=== PATIENT | female | born 1945 | race Caucasian/White ===

== ENCOUNTER 2020-05-21 15:16 | Outpatient (CLI) | payer OTHER, SELFPAY ==
--- NOTE | ~2020-05-21 | MM_ITS ---
EXAMINATION: MM screening cammy BI w harpreet HISTORY: Screening mammogram TECHNIQUE: Craniocaudal and mediolateral oblique 3-D tomosynthesis images were obtained and synthetic 2-D images were generated. CAD analysis was submitted and interpreted. COMPARISON: 12/03/2018, 10/02/2017, 03/14/2016 bilateral digital screening mammogram examinations BREAST PARENCHYMAL COMPOSITION: There are scattered areas of fibroglandular density.... FINDINGS: Occasional benign calcifications. There is no evidence of suspicious mass, calcification, o r architectural distortion to suggest malignancy in either breast. There has been no suspicious inter bassam change. IMPRESSION: 1. No mammographic evidence of malignancy. 2. Recommend routine screening mammography in one year. BI-RADS Category 2: Benign finding(s) Reviewed, dictated and finalized at location A.
== END 2020-05-21 15:17 | disposition home or self-care (01) ==
PROVIDERS: PCP Internal Medicine; Visit Provider Internal Medicine
DX: Z12.31 Encounter for screening mammogram for malignant neoplasm of breast (principal)
CPT/HCPCS: 77063; 77067

== ENCOUNTER → 2020-11-08 08:19 | Outpatient (CLI) | payer OTHER, SELFPAY ==
--- NOTE | ~2020-11-08 | XR_ITS ---
EXAMINATION: XR lumbar spine 2-3V DATE: 11/08/2020 08:53 INDICATION: Low back pain TECHNIQUE: Anteroposterior and lateral views of the lumbar spine, and cone-down lateral view of the l umbosacral junction were obtained. COMPARISON: None. FINDINGS: There is no fracture. There are 2 mm of anterolisthesis of L3 on L4 and L4 on L5. The verte bral body heights are there is mild loss of intervertebral disc space height at L4-5 and L5-S1. Small degenerative osteophytes project from the anterior endplates of multiple vertebral bodies. IMPRESSION: 1. Mild lumbar spondylosis without acute findings. Reviewed, dictated and finalized at location B.
== END ==
PROVIDERS: Visit Provider Nurse Practitioner
DX: M54.9 Dorsalgia, unspecified (principal); M47.816 Spondylosis without myelopathy or radiculopathy, lumbar region
CPT/HCPCS: 72100

== ENCOUNTER 2021-01-18 09:14 | Outpatient (CLI) | payer OTHER, SELFPAY ==
--- NOTE | 2021-01-18 09:37 | EST_ITS ---
Patient Info Name: Mallory Toure Age: 75 years : 1945 Gender: Female Ht: 59 in Wt: 144 lbs BSA: 1.67 m2 Exam Date: 01/18/2021 9:55 AM Exam Location: [facility] Stress Patient Status: Outpatient Admit Date: 01/18/2021 Staff Ordering Physician: Sheila Summers Attending Provider: Sheila Summers Exercise Technologist: Iqra Cabral RDCS Exercise Physician: Feliciano Ramos DO Exam Type: CA stress test treadmill Study Info Indications R29.898 - OTHER SYMPTOMS AND SIGNS INVOLVING MUSCULOSKELETAL SYSTEM R42 - Dizziness and giddiness An exercise stress test was performed. Summary 1. 1. Negative Vignesh exercise stress test for ischemic ST changes by ECG criteria. 2. 2. Good functional capacity, achieving 7 METs of workload. 3. 3. Appropriate HR response to exercise. 4. 4. Appropriate HR recovery at 1 minute post exercise. 5. 5. Hypertensive response to exercise. 6. 6. No imaing with stress testing. 7. 7. Patient informed of the above results. Protocol: Vignesh Stress ECG Details Stage: REST Duration (min): 4 min : 46 sec Speed (mph): 0.0 Grade (%): 0 HR (bpm): 75 SBP (mmHg): 126 DBP (mmHg): 80 METS: --- Stage: REST Duration (min): 12 min : 21 sec Speed (mph): 0.0 Grade (%): 0 HR (bpm): 72 SBP (mmHg): 126 DBP (mmHg): 80 METS: --- Stage: STAGE 1 Duration (min): 1 min : 0 sec Speed (mph): 1.7 Grade (%): 10 HR (bpm): 107 SBP (mmHg): 126 DBP (mmHg): 80 METS: --- Stage: STAGE 1 Duration (min): 2 min : 0 sec Speed (mph): 1.7 Grade (%): 10 HR (bpm): 126 SBP (mmHg): 126 DBP (mmHg): 80 METS: --- Stage: STAGE 1 Duration (min): 3 min : 0 sec Speed (mph): 1.7 Grade (%): 10 HR (bpm): 132 SBP (mmHg): 183 DBP (mmHg): 52 METS: --- Stage: STAGE 2 Duration (min): 1 min : 0 sec Speed (mph): 2.5 Grade (%): 12 HR (bpm): 136 SBP (mmHg): 183 DBP (mmHg): 52 METS: --- Stage: STAGE 2 Duration (min): 2 min : 0 sec Speed (mph): 2.5 Grade (%): 12 HR (bpm): 140 SBP (mmHg): 198 DBP (mmHg): 62 METS: --- Stage: STAGE 2 Duration (min): 2 min : 0 sec Speed (mph): 2.5 Grade (%): 12 HR (bpm): 139 SBP (mmHg): 198 DBP (mmHg): 62 METS: --- Stage: RECOVERY Duration (min): 0 min : 59 sec Speed (mph): 0.0 Grade (%): 0 HR (bpm): 108 SBP (mmHg): 214 DBP (mmHg): 70 METS: --- Stage: RECOVERY Duration (min): 1 min : 59 sec Speed (mph): 0.0 Grade (%): 0 HR (bpm): 93 SBP (mmHg): 214 DBP (mmHg): 70 METS: --- Stage: RECOVERY Duration (min): 2 min : 59 sec Speed (mph): 0.0 Grade (%): 0 HR (bpm): 87 SBP (mmHg): 191 DBP (mmHg): 74 METS: --- Stage: RECOVERY Duration (min): 3 min : 59 sec Speed (mph): 0.0 Grade (%): 0 HR (bpm): 83 SBP (mmHg): 191 DBP (mmHg): 74 METS: ---
== END 2021-01-18 09:15 | disposition home or self-care (01) ==
PROVIDERS: PCP Internal Medicine; Visit Provider Nurse Practitioner
DX: R29.898 Other symptoms and signs involving the musculoskeletal system (principal); R42 Dizziness and giddiness
CPT/HCPCS: 93017

== ENCOUNTER 2021-01-21 09:06 | Outpatient (CLI) | payer OTHER, SELFPAY ==
--- NOTE | ~2021-01-21 | CT_ITS ---
EXAMINATION: CT brain wo con DATE: 01/21/2021 09:41 INDICATION: Dizziness. Giddiness. TECHNIQUE: Computed tomography (CT) of the head was performed without intravenous contrast. The dose- length product was 605.33 mGy-cm. Automated exposure control and iterative reconstruction technique w ere employed. COMPARISON: No prior studies for comparison. FINDINGS: Normal brain parenchymal volume. No acute intracranial hemorrhage, infarction, mass or mass effect. Basilar cisterns are patent. No ventriculomegaly or midline shift. There is mild mucosal thi ckening of the maxillary and ethmoid sinuses. There is a left mastoid effusion. IMPRESSION: 1. Mild sinus disease. Small left mastoid effusion. Reviewed, dictated and finalized at location B.
== END 2021-01-21 09:07 | disposition home or self-care (01) ==
PROVIDERS: PCP Internal Medicine; Visit Provider Nurse Practitioner
DX: R42 Dizziness and giddiness (principal); H74.8X2 Other specified disorders of left middle ear and mastoid
CPT/HCPCS: 70450

== ENCOUNTER 2021-06-10 14:27 | Outpatient (CLI) | payer OTHER, SELFPAY ==
--- NOTE | ~2021-06-10 | MM_ITS ---
EXAMINATION: MM screening cammy BI w harpreet HISTORY: Screening mammogram TECHNIQUE: Craniocaudal and mediolateral oblique 3-D tomosynthesis images were obtained and synthetic 2-D images were generated. CAD analysis was submitted and interpreted. COMPARISON: 05/21/2020, 12/03/2018, 10/02/2017 bilateral screening mammogram examinations BREAST PARENCHYMAL COMPOSITION: There are scattered areas of fibroglandular density. FINDINGS: Occasional benign calcifications are again noted. There is no evidence of suspicious mass, calcification, or architectural distortion to suggest malignancy in either breast. There has been no suspicious interval change. IMPRESSION: 1. No mammographic evidence of malignancy. 2. Recommend routine screening mammography in one year. BI-RADS Category 2: Benign finding(s). Reviewed, dictated and finalized at location A. 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
== END 2021-06-10 14:28 | disposition home or self-care (01) ==
LOC: ANHIMG 14:29
PROVIDERS: PCP Internal Medicine; Visit Provider Nurse Practitioner
DX: Z12.31 Encounter for screening mammogram for malignant neoplasm of breast (principal)
CPT/HCPCS: 77063; 77067

== ENCOUNTER 2021-08-02 09:03 | Outpatient (CLI) | payer OTHER, SELFPAY ==
--- NOTE | ~2021-08-02 | DEXA_ITS ---
Bone Density Report Name: ZOILA GRAY Age: 75 Sex: Female Ethnicity: White Date of : 1945 Indication: postmenopausal; height loss; prior fracture; Referring Provider: EDWIN RAMACHANDRAN Study: Bone densitometry was performed. Exam Date: August 02, 2021 Accession number: [id number] Bone Density: Region BMD T-score Z-score Classification AP Spine (L1-L4) 1.066 0.2 2.6 Normal Femoral Neck (Left) 0.690 -1.4 0.7 Osteopenia Total Hip (Left) 0.923 -0.2 1.7 Normal Total Hip Bilateral Avg 0.918 -0.2 1.7 Normal Femoral Neck (Right) 0.667 -1.6 0.5 Osteopenia Total Hip (Right) 0.913 -0.2 1.6 Normal World Health Organization criteria for BMD impression classify patients as: Normal (T-score at or above -1.0), Osteopenia (T-score between -1.0 and -2.5), or Osteoporosis (T-score at or below -2.5). 10-year Fracture Risk(1): Major Osteoporotic Fracture 18% Hip Fracture 3.5% Reported Risk Factors: [place] (), Neck BMD=0.667, BMI=29.0, previous fracture (1) FRAX(R) Version 3.08. Fracture probability calculated for an untreated patient. Fracture probability may be lower if the patient has received treatment. Previous Exams: Region Exam Age BMD T-score BMD Change BMD Change Date g/cm2 vs Baseline vs Previous AP Spine(L1-L4) 08/02/2021 75 1.066 0.2 -0.038(-3.5%)# 0.059(5.8%)* 12/03/2018 73 1.007 -0.4 -0.097(-8.8%)# -0.018(-1.8%) 01/11/2015 69 1.025 -0.2 -0.079(-7.1%)# -0.008(-0.8%)# 11/19/2012 67 1.033 -0.1 -0.071(-6.4%)# -0.018(-1.7%)# 10/18/2010 65 1.051 0.0 -0.053(-4.8%)* 0.021(2.1%) 10/02/2008 62 1.030 -0.2 -0.074(-6.7%)* -0.074(-6.7%)* 04/29/2003 57 1.104 0.5 Total Hip(Left) 08/02/2021 75 0.923 -0.2 -0.034(-3.6%)# 0.004(0.5%) 12/03/2018 73 0.918 -0.2 -0.039(-4.1%)# 0.026(2.9%) 01/11/2015 69 0.892 -0.4 -0.065(-6.8%)# 0.064(7.7%)# 11/19/2012 67 0.828 -0.9 -0.129(-13.5%) -0.081(-8.9%)# 10/18/2010 65 0.909 -0.3 -0.048(-5.0%)* 0.007(0.8%) 10/02/2008 62 0.901 -0.3 -0.056(-5.8%)* -0.056(-5.8%)* 04/29/2003 57 0.957 0.1 Total Hip(Right) 08/02/2021 75 0.913 -0.2 -0.005(-0.6%)# 0.049(5.7%)* 12/03/2018 73 0.864 -0.6 -0.054(-5.9%)# 0.026(3.1%) 01/11/2015 69 0.838 -0.9 -0.080(-8.7%)# 0.035(4.4%)# 11/19/2012 67 0.803 -1.1 -0.115(-12.6%) -0.063(-7.3%)# 10/18/2010 65 0.866 -0.6 -0.052(-5.7%)* -0.026(-2.9%) 10/02/2008 62 0.892 -0.4 -0.026(-2.9%) -0.026(-2.9%) 04/29/2003 57 0.918 -0.2 *Denotes significance at
== END 2021-08-02 09:04 | disposition home or self-care (01) ==
LOC: ANHIMG 09:04
PROVIDERS: PCP Internal Medicine; Visit Provider Nurse Practitioner
DX: Z78.0 Asymptomatic menopausal state (principal); M85.851 Other specified disorders of bone density and structure, right thigh; M85.852 Other specified disorders of bone density and structure, left thigh
CPT/HCPCS: 77080

== ENCOUNTER 2022-08-03 09:25 | Outpatient (CLI) | payer OTHER, SELFPAY ==
--- NOTE | ~2022-08-03 | MM_ITS ---
EXAMINATION: MM screening [facility] BI w harpreet HISTORY: Screening mammogram TECHNIQUE: Craniocaudal and mediolateral oblique 3-D tomosynthesis images were obtained and synthetic 2-D images were generated. CAD analysis was submitted and interpreted. COMPARISON: 06/10/2021, 05/21/2020, 12/03/2018, 03/13/2016 BREAST PARENCHYMAL COMPOSITION: There are scattered areas of fibroglandular density. FINDINGS: No suspicious mass, calcification, or architectural distortion are identified in either2 br east to suggest malignancy. There has been no suspicious interval change. IMPRESSION: 1. No mammographic evidence of malignancy. 2. Recommend routine screening mammography in one year. 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
== END 2022-08-03 09:26 | disposition home or self-care (01) ==
PROVIDERS: PCP Internal Medicine; Visit Provider Internal Medicine
DX: Z12.31 Encounter for screening mammogram for malignant neoplasm of breast (principal)
CPT/HCPCS: 77063; 77067

== ENCOUNTER 2023-01-23 08:23 | Outpatient (CLI) | payer OTHER, SELFPAY ==
--- NOTE | ~2023-01-23 | XR_ITS ---
Right Knee Technique: AP and lateral views were obtained. Clinical History: Pain Findings: No fracture or dislocation is seen. Osseous alignment is anatomic. Joint spaces are preserv ed without degenerative or erosive change. Soft tissues are unremarkable. No joint effusion is seen. Impression: Unremarkable right knee radiographs. Reviewed, dictated and finalized at location . Impression: Unremarkable right knee radiographs.
--- NOTE | ~2023-01-23 | XR_ITS ---
Right Shoulder Technique: AP and scapular Y views were obtained. Clinical History: Pain Findings: No fracture or dislocation is seen. Osseous alignment is anatomic. There is minimal degener ative change of the glenohumeral joint. Soft tissues are unremarkable. Impression: . Minimal degenerative change of the right glenohumeral joint. Reviewed, dictated and finalized at location . Impression: . Minimal degenerative change of the right glenohumeral joint.
== END 2023-01-23 08:24 | disposition home or self-care (01) ==
PROVIDERS: PCP Nurse Practitioner Family; Visit Provider Nurse Practitioner Family
DX: M25.561 Pain in right knee (principal); M25.511 Pain in right shoulder; W19.XXXA Unspecified fall, initial encounter
CPT/HCPCS: 73030; 73560

== ENCOUNTER 2023-03-01 07:45 | Outpatient (CLI) | payer OTHER, SELFPAY ==
--- NOTE | ~2023-03-01 | MR_ITS ---
EXAMINATION: MR shoulder RT wo con DATE: 03/01/2023 08:32 INDICATION: Right shoulder pain TECHNIQUE: Magnetic resonance imaging (MRI) of the right shoulder was performed without intravenous c ontrast. Sequences included axial PD-weighted FS FSE, coronal oblique PD-weighted FS FSE, coronal obl ique T2-weighted FS FSE, sagittal PD-weighted FS FSE, and sagittal T1-weighted SE. COMPARISON: None. FINDINGS: Coracoacromial arch: The acromion undersurface is curved in morphology (type II). The coracoacromial ligament is normal. M oderate acromioclavicular osteoarthritis. Rotator cuff: Moderate supraspinatus tendinopathy with small moderate severity articular sided tear extending 7 mm AP along the superior facet footplate of the tendon and involving up to two thirds of the tendon thic kness. There is severe infraspinatus tendinopathy with some thin linear fluid signal intensity extend ing along the disorganized appearing central tendon fibers in the distal 2 cm of the tendon suggestin g some intrasubstance tearing but without a well-defined measurable tear defect. No evident reversibl e or articular sided component to the tear. The teres minor tendon is normal. Mild subscapularis tend inopathy without tear. Normal rotator cuff muscle bulk and signal. Biceps tendon, glenoid labrum and glenohumeral cartilage: Mild tendinopathy without discrete tear of the intra-articular long head biceps tendon. There is a te ar of the 11:00-12:00 position of the superior glenoid labrum. Degenerative tearing of the inferior g lenoid labrum which is partially replaced by small marginal osteophytes along the inferior rim of the glenoid. Partial-thickness cartilage loss along the apex, anteroapical and inferomedial aspects of t he humeral head. Glenoid cartilage appears relatively preserved. Fluid: Small glenohumeral joint effusion with proportional extension of a small amount of fluid into the lowell g head biceps tendon sheath. No loose osteochondral bodies. Small amount of fluid in the subacromial/ subdeltoid bursa consistent with mild bursitis. Bones: Bone alignment is normal. No fracture or pathologic marrow replacing process. Cystic changes along th e middle facet of the greater tuberosity likely related to chronic rotator cuff disease. IMPRESSION: 1. Moderate supraspinatus tendinopathy with small moderate severity partial-thickness articular sided tear at the distal insertion of the tendon. 2. Severe infraspinatus tendinopathy with suggestion of some intrasubstance tearing without a clearly defined measurable tear defect. 3. Mild glenohumeral osteoarthritis with tear at the superior glenoid labrum and likely labral degene ration inferiorly. 4. Moderate acromioclavicular osteoarthritis. 5. Mild tendinopathy without tear of the intra-articular long head biceps tendon. 6. Mild subacromial/subdeltoid bursitis. Reviewed, dictated and finalized at location A. IMPRESSION: 1. Moderate supraspinatus tendinopathy with small moderate severity partial-thi ckness articular sided tear at the distal insertion of the tendon. 2. Severe infraspinatus tendinopathy with suggestion of some intrasubstance tea ring without a clearly defined measurable tear defect. 3. Mild glenohumeral osteoarthritis with tear at the superior glenoid labrum an d likely labral degeneration inferiorly. 4. Moderate acromioclavicular osteoarthritis. 5. Mild tendinopathy without tear of the intra-articular long head biceps tendo n. 6. Mild subacromial/subdeltoid bursitis.
== END 2023-03-01 07:46 | disposition home or self-care (01) ==
PROVIDERS: PCP Nurse Practitioner Family; Visit Provider Nurse Practitioner Family
DX: M25.511 Pain in right shoulder (principal); M77.8 Other enthesopathies, not elsewhere classified; M19.011 Primary osteoarthritis, right shoulder; M75.21 Bicipital tendinitis, right shoulder; M75.51 Bursitis of right shoulder
CPT/HCPCS: 73221

== ENCOUNTER 2023-08-02 08:30 | Emergency (ER) | payer OTHER, SELFPAY ==
--- NOTE | ~2023-08-02 | XR_ITS ---
EXAMINATION: XR chest 2V DATE: 08/02/2023 09:02 INDICATION: Cough and congestion TECHNIQUE: PA and lateral views of the chest were obtained. COMPARISON: Chest radiograph dated 08/13/2018 FINDINGS: The lungs are clear with no focal airspace opacities, pulmonary edema, pleural effusion or pneumothor ax. The cardiomediastinal silhouette is normal. Chronic mild anterior wedging at T11 with mild to mod erate lower thoracic spondylosis. IMPRESSION: 1. No acute cardiopulmonary disease. Reviewed, dictated and finalized at location A. 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
--- NOTE | 2023-08-02 08:38 | ED.URI ---
HPI - URI/Sore Throat General Chief Complaint: Upper Respiratory Infection Stated Complaint: HOT & COLD/COUGH/BODY ACHES/TIRED Time Seen by Provider: 08/02/23 08:38 Source: patient Mode of arrival: ambulatory Limitations: no limitations History of Present Illness HPI Narrative: Mallory is a 77-year-old female patient presenting to the clinic today with complaints of body aches, chills, cough, and fatigue x3 days. She reports symptoms started on . MD elicited complaint: fever, cough, rhinorrhea and nasal congestion Related Data Home Medications Medication Instructions Recorded Confirmed doxycycline hyclate 50 mg capsule 50 mg PO DAILY 04/03/23 08/02/23 fluticasone propionate 50 intranasal 08/02/23 mcg/actuation nasal spray,suspension Allergies Allergy/AdvReac Type Severity Reaction Status Date / Time No Known Drug Allergies Allergy Unknown Verified 08/02/23 08:40 Review of Systems Review of Systems: Pertinent positives per HPI. Patient denies any rash, headache, visual changes, dizziness, sore throat, shortness of breath, chest pain, palpitations, nausea, vomiting, diarrhea, constipation, abdominal pain, or any urinary issues. [facility] Past Medical History Medical History Right rotator cuff tear Shoulder pain, right Strain of right biceps Thyroid disorder Surgical History Surgical History H/O breast biopsy H/O partial thyroidectomy Hx of appendectomy Family History Family History Sibling Patient's sister is in good health Father Family history of lung cancer Mother Family history of heart disease in male family member before age 55 Family history of cardiovascular disease Other Family history of malignant neoplasm of breast Social History Social History Years smoked: 2 Smoking status: Former smoker Tobacco type: cigarettes Second hand tobacco smoke exposure: Yes Alcohol intake: never Substance use: never Substance use type: does not use Lack of Transportation: No Lack of Food: Never True Current Housing: I Have Housing Concerned About Future Housing: No Difficulty Paying Gas/Electric Bills: No Difficulty Paying for Meds: No Currently Unemployed: No Education: Trade/Vocational Certificate Difficulty w/ Childcare or Family Care: No Living arrangements: with friend(s) Occupation/Education: retired Comments At the time of my signature, I reviewed and agree with the nursing past medical, surgical, social, and family history. There is no relevant family history pertinent to the patient complaint. Exam Narrative: General: Well-developed, well nourished, in no apparent distress Head: Normocephalic, atraumatic Eyes: Pupils equally round and reactive to light bilaterally, EOM intact, sclera and conjunctive clear, no discharge, lids normal Ears: TMs intact and clear, ear canals clear, no drainage, grossly hearing normal. Nose: Nares patent, clear nasal discharge, no inflammation, no sinus tenderness. Mouth: Oropharynx without lesions or masses, good dentition, MMM. Neck: Supple, trachea midline, no enlargement of anterior or posterior cervical nodes, no thyroid masses or goiter palpable. Cardio: Regular rate and rhythm, s1 and s2 normal, no murmur appreciated. Resp: Crackles heard over the left upper lobe, no rhonchi, wheezing or rubs Course Course Emergency Course: Portions of this record may have been created with voice recognition software. Level of Care: Express Care Visit Vital Signs Vital signs: Vital signs reviewed MDM - URI/Sore Throat MDM Narrative Medical decision making narrative: At the time of visit patient is resting comfortably on the exam table. Patient appears to be nontox
[2023-08-02 08:43] VITALS: BP 132/84; PULSE 95; RESP 16; TEMP 36.8; O2SAT 97
== END 2023-08-02 09:12 | disposition home or self-care (01) ==
PROVIDERS: Emergency Provider Nurse Practitioner Family; PCP Nurse Practitioner Family
DX: J10.1 Influenza due to other identified influenza virus with other respiratory manifestations (principal); Z20.822 Contact with and (suspected) exposure to COVID-19; Z87.891 Personal history of nicotine dependence; E03.9 Hypothyroidism, unspecified; Z90.89 Acquired absence of other organs
CPT/HCPCS: 71046; 87426; 87804; 99213; C9803; G0463

== ENCOUNTER 2023-09-26 14:58 | Outpatient (CLI) | payer OTHER, SELFPAY ==
--- NOTE | ~2023-09-26 | MM_ITS ---
EXAMINATION: MM screening cammy BI w harpreet HISTORY: Screening TECHNIQUE: Craniocaudal and mediolateral oblique 3-D tomosynthesis images were obtained and synthetic 2-D images were generated. CAD analysis was submitted and interpreted. COMPARISON: Comparison to multiple prior studies sequentially, with oldest reviewed study dated 03/13. BREAST PARENCHYMAL COMPOSITION: There are scattered areas of fibroglandular density. FINDINGS: There is no evidence of suspicious mass, calcification, or architectural distortion to sugg est malignancy in either breast. There has been no suspicious interval change. IMPRESSION: 1. No mammographic evidence of malignancy. 2. Recommend routine screening mammography in one year. BI-RADS Category 1: Negative Reviewed, dictated and finalized at location A. 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
== END 2023-09-26 14:59 | disposition home or self-care (01) ==
LOC: ANHIMG 15:02
PROVIDERS: PCP Nurse Practitioner Family; Visit Provider Nurse Practitioner Family
DX: Z12.31 Encounter for screening mammogram for malignant neoplasm of breast (principal)
CPT/HCPCS: 77063; 77067

== ENCOUNTER 2023-11-12 11:13 | Emergency (ER) | payer OTHER, SELFPAY ==
[2023-11-12 11:20] VITALS: BP 157/66; PULSE 85; RESP 18; TEMP 37; O2SAT 96
--- NOTE | 2023-11-12 11:32 | ED.URI ---
HPI - URI/Sore Throat General Chief Complaint: Upper Respiratory Infection Stated Complaint: Cold Symptoms Time Seen by Provider: 11/12/23 11:32 Source: patient, RN notes reviewed and old records reviewed Mode of arrival: ambulatory Limitations: no limitations History of Present Illness HPI Narrative: 70-year-old female presents to the [facility] with complaints nasal congestion, runny nose the started in middle of last night. Unsure she took any medications for her symptoms. Patient denies sore throat. 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 Onset (ago): hour(s) (Less than 12 hours) Related Data Home Medications Medication Instructions Recorded Confirmed doxycycline hyclate 50 mg capsule 50 mg PO DAILY 04/03/23 11/12/23 fluticasone propionate 50 2 spray intranasal BID 08/02/23 11/12/23 mcg/actuation nasal spray,suspension Allergies Allergy/AdvReac Type Severity Reaction Status Date / Time No Known Drug Allergies Allergy Unknown Verified 11/12/23 11:16 Review of Systems Review of Systems: All systems reviewed & are unremarkable except as noted in HPI and below Constitutional: Constitutional: Reports no additional constitutional complaints Eyes: Eyes: Reports no additional eye complaints ENT: Reports as per HPI, Reports nasal congestion and Reports nasal discharge Cardiovascular: Cardiovascular: Reports no additional cardiovascular complaints, Denies chest pain and Denies dyspnea Respiratory: Respiratory: Reports no additional respiratory complaints, Denies chest congestion, Denies cough and Denies dyspnea Gastrointestinal: Gastrointestinal: Reports no additional gastrointestinal complaints, Denies abdominal pain, Denies nausea and Denies vomiting Musculoskeletal: Musculoskeletal: Reports no additional musculoskeletal complaints Integumentary/Breasts: Skin/Breast: Reports system reviewed and no additional complaints, except as docu Neurologic: Reports system reviewed and no additional complaints, except as documented Psychiatric: Psychiatric: Reports no additional psychiatric complaints Allergic/Immunologic: Allergic/Immunologic: Reports no additional allergic/immunologic complaints PMFSH Past Medical History Medical History Right rotator cuff tear Shoulder pain, right Strain of right biceps Thyroid disorder Surgical History Surgical History H/O breast biopsy H/O partial thyroidectomy Hx of appendectomy Family History Family History Sibling Patient's sister is in good health Father Family history of lung cancer Mother Family history of heart disease in male family member before age 55 Family history of cardiovascular disease Other Family history of malignant neoplasm of breast Social History Social History Years smoked: 2 Smoking status: Former smoker Tobacco type: cigarettes Second hand tobacco smoke exposure: Yes Alcohol intake: never Substance use: never Substance use type: does not use Do You Feel Safe in your Home?: Yes Lack of Transportation: No Lack of Food: Never True Current Housing: I Have Housing Concerned About Future Housing: No Difficulty Paying Gas/Electric Bills: No Difficulty Paying for Meds: No Currently Unemployed: No Education: Trade/Vocational Certificate Difficulty w/ Childcare or Family Care: No Living arrangements: with friend(s) Occupation/Education: retired Comments At the time of my signature, I reviewed and agree with the nursing past medical, surgical, social, and family history. There is no relevant family history pertinent to the patient complaint. Exam Const: General: cooperative, healthy appearing, comfor
== END 2023-11-12 13:46 | disposition home or self-care (01) ==
PROVIDERS: Emergency Provider Nurse Practitioner; PCP Nurse Practitioner Family
DX: J06.9 Acute upper respiratory infection, unspecified (principal); Z20.822 Contact with and (suspected) exposure to COVID-19; Z87.891 Personal history of nicotine dependence; E07.9 Disorder of thyroid, unspecified; Z90.89 Acquired absence of other organs
CPT/HCPCS: 87426; 87804; 99213; G0463

== ENCOUNTER 2024-02-22 16:28 | Emergency (ER) | payer OTHER, SELFPAY ==
--- NOTE | 2024-02-22 16:40 | ECG_ITS ---
Test Date: 2024-02-22 16:48:57 Measurements Intervals [place] Rate: 92 P: 64 [place]: 207 QRS: 67 QRSD: 101 T: 68 QT: 341 QTc: 424 Interpretive Statements SINUS RHYTHM NORMAL ECG No previous ECG available for comparison Electronically Signed On 02-23-2024 07:47:16 CDT by Feliciano Ramos D.O.
--- NOTE | 2024-02-22 16:42 | ED.GENADULT ---
HPI - General Adult General Stated complaint: High Blood Pressure Time Seen by Provider: 02/22/24 16:35 Source: patient Mode of arrival: ambulatory Limitations: no limitations History of Present Illness HPI narrative: Patient presents to [facility] with complaints of feeling weird . She reports that she was at a pool libertarian just prior to arrival. Began to feel dizzy and short of breath. She drove herself here. Wonders if she has high blood pressure. Has not been medicated for high blood pressure, but was told if her blood pressure continued to be elevated she would need to take medication. She reports she is very nervous about this. She reports that she is no longer feeling lightheaded, but does still feel as though her chest is tight. Related Data Home Medications Medication Instructions Recorded Confirmed doxycycline hyclate 50 mg capsule 50 mg PO DAILY 04/03/23 02/22/24 fluticasone propionate 50 2 spray intranasal BID PRN Allergy 12/18/23 02/22/24 mcg/actuation nasal Symptoms spray,suspension Allergies Allergy/AdvReac Type Severity Reaction Status Date / Time No Known Drug Allergies Allergy Unknown Verified 02/22/24 16:29 Review of Systems Review of Systems: All systems reviewed & are unremarkable except as noted in HPI and below Constitutional: Constitutional: Reports no additional constitutional complaints ENT: Reports system reviewed and no additional complaints, except as documented Cardiovascular: Cardiovascular: Reports other ( chest tightness) Respiratory: Respiratory: Reports dyspnea Gastrointestinal: Gastrointestinal: Reports no additional gastrointestinal complaints Psychiatric: Psychiatric: Reports anxiety [facility] Past Medical History Medical History Right rotator cuff tear Shoulder pain, right Strain of right biceps Thyroid disorder Surgical History Surgical History H/O breast biopsy H/O partial thyroidectomy Hx of appendectomy Family History Family History Sibling Leukemia Father Family history of lung cancer Mother Family history of heart disease in male family member before age 55 Family history of cardiovascular disease Other Family history of malignant neoplasm of breast Social History Social History Years smoked: 2 Smoking status: Former smoker Tobacco type: cigarettes Second hand tobacco smoke exposure: Yes Alcohol intake: never Substance use: never Substance use type: does not use Do You Feel Safe in your Home?: Yes Lack of Transportation: No Lack of Food: Never True Current Housing: I Have Housing Concerned About Future Housing: No Difficulty Paying Gas/Electric Bills: No Difficulty Paying for Meds: No Currently Unemployed: No Education: Trade/Vocational Certificate Difficulty w/ Childcare or Family Care: No Living arrangements: with family Occupation/Education: retired Additional occupation/education comments: [employer] Gender identity (if verbalized by the patient): Female Exam Const: General: cooperative, no acute distress, alert and awake Orientation/consciousness: oriented to person, oriented to place and oriented to time HENMT: Head: normal to inspection Resp: Effort & Inspection: normal respiratory effort and able to speak in complete sentences Auscultation: clear to auscultation bilaterally, no crackles, no rales, no rhonchi and no wheezes Cardio: Palpation: normal PMI Rate: regular rate Rhythm: regular rhythm Heart sounds: S1 normal heart sound present and S2 normal heart sound present Neuro: General: oriented to person, oriented to place and oriented to time Cranial nerves: Yes CN's II-XII intact bilaterally Psych: Appearance: grossly normal Mental Status:
[2024-02-22 16:53] VITALS: BP 157/79; PULSE 112; RESP 16; TEMP 36; O2SAT 97
== END 2024-02-22 17:25 | disposition left against medical advice (07) ==
PROVIDERS: Emergency Provider Nurse Practitioner Family
DX: R06.02 Shortness of breath (principal); R03.0 Elevated blood-pressure reading, without diagnosis of hypertension; Z90.89 Acquired absence of other organs; Z87.891 Personal history of nicotine dependence
CPT/HCPCS: 93005; 99213; G0463

== ENCOUNTER 2024-02-26 14:49 | Outpatient (CLI) | payer OTHER, SELFPAY ==
--- NOTE | ~2024-02-26 | CT_ITS ---
CTA chest PE protocol Ordering provider: Kayla Jack APRN History: 78 years Female with . R06.02 - Shortness of breath . Comparison: None. Technique: CT angiogram chest was performed following timed intravenous injection of contrast. Thin s lice axial images and reformatted coronal images were obtained. Three dimensional reformatted images of the chest were also obtained using a Qinti workstation. . Automated exposure control and iterati ve reconstruction technique were employed. The dose-length product was 288.67 mGy-cm. 100 mL Omnipaqu e 350 was given IV. Findings: PULMONARY ARTERIES: No pulmonary embolus. VISUALIZED THORACIC INLET: Normal. MEDIASTINUM: Aorta/coronary arteries: Mild atheromatous disease. Heart/other: The heart is not enlarged. Lymph nodes: No mediastinal or hilar adenopathy. LUNGS: Small emphysematous bulla or bleb is seen near to the right hilar area. Dependent atelectatic changes in the right lung base. No pulmonary nodules or masses. No infiltrates or effusions. No pneumothorax . VISUALIZED UPPER ABDOMEN: the visualized upper abdomen is normal. MUSCULOSKELETAL: Soft tissues: The superficial soft tissues are normal. Bones: Age appropriate degenerative changes of the spine. IMPRESSION: 1. No pulmonary embolism. 2. No acute cardiopulmonary pathology. Reviewed, dictated and finalized at location A.
[2024-02-26 15:20] LABS: Estimated Glomerular Filt Rate > 60
== END 2024-02-26 14:50 | disposition home or self-care (01) ==
PROVIDERS: PCP Nurse Practitioner Family; Visit Provider Nurse Practitioner Family
DX: I26.99 Other pulmonary embolism without acute cor pulmonale (principal)
CPT/HCPCS: 71275; Q9967

== ENCOUNTER 2024-02-27 08:59 | Outpatient (CLI) | payer OTHER, SELFPAY ==
--- NOTE | ~2024-02-27 | DEXA_ITS ---
Bone Density Report Name: ZOILA GRAY Age: 78 Sex: Female Ethnicity: White Date of : 1945 Indication: postmenopausal; screening for osteoporosis; history of glucocorticoids; Referring Provider: SHANELLE OBRIEN Study: Bone densitometry was performed. Exam Date: February 27, 2024 Accession number: [id number] Bone Density: Region BMD T-score Z-score Classification AP Spine(L1-L4) 0.986 -0.6 2.0 Normal Femoral Neck (Left) 0.694 -1.4 0.8 Osteopenia Total Hip (Left) 0.968 0.2 2.2 Normal Femoral Neck (Right) 0.657 -1.7 0.5 Osteopenia Total Hip (Right) 0.960 0.1 2.1 Normal Total Hip Mean 0.964 0.2 2.2 Normal World Health Organization criteria for BMD impression classify patients as: Normal (T-score at or above -1.0), Osteopenia (T-score between -1.0 and -2.5), or Osteoporosis (T-score at or below -2.5). 10-year Fracture Risk: FRAX not reported because: Treated for osteoporosis Clinical Information Provided by Patient: Has taken Glucocorticoids Is being treated for osteoporosis Has used the following medications: Vitamin D, Calcium Patient maximum height was 60.5 No regular weight bearing exercise Does not regularly consume dairy products Drinks caffeinated beverages Onset of menses at age 13 Number of children 2 Impression: The patient has low bone mass, based on the Right Femoral Neck T-score. The patient has risk factors, including: history of glucocorticoid therapy. Discussion: It is important to ask patients whether they are taking their medications and to encourage continued and appropriate compliance with their osteoporosis therapies to reduce fracture risk. It is also important to review their risk factors and encourage appropriate calcium and vitamin D intakes, exercise, fall prevention and other lifestyle measures. Follow-Up: Consider a repeat BMD and Vertebral Fracture Assessment (VFA) exam in 2 years or sooner if medically necessary, to reassess this patient's status. Reported by: HAMILTON on 02/27/2024 9:39:00 AM. Reviewed, dictated and finalized at location ANir MOTTA
== END 2024-02-27 09:00 | disposition home or self-care (01) ==
PROVIDERS: PCP Nurse Practitioner Family; Visit Provider Nurse Practitioner Family
DX: M85.89 Other specified disorders of bone density and structure, multiple sites (principal); Z78.0 Asymptomatic menopausal state; Z13.820 Encounter for screening for osteoporosis
CPT/HCPCS: 77080

== ENCOUNTER 2024-04-29 12:06 | Outpatient (CLI) | payer OTHER, SELFPAY ==
--- NOTE | ~2024-04-29 | XR_ITS ---
Right Shoulder Technique: AP and axillary views were obtained. Clinical History: Rotator cuff tear Findings: No fracture or dislocation is seen. Osseous alignment is anatomic. The glenohumeral and acr omioclavicular joints demonstrate mild degenerative change. Soft tissues are unremarkable. Impression: Mild degenerative change, as above. Reviewed, dictated and finalized at location . Impression: Mild degenerative change, as above.
== END 2024-04-29 12:07 | disposition home or self-care (01) ==
LOC: ANHIMG 12:09
PROVIDERS: PCP Nurse Practitioner Family; Visit Provider Orthopaedic Surgery
DX: M75.101 Unspecified rotator cuff tear or rupture of right shoulder, not specified as traumatic (principal)
CPT/HCPCS: 73030

== ENCOUNTER 2024-06-10 11:51 | Outpatient (CLI) | payer OTHER, SELFPAY ==
--- NOTE | ~2024-06-10 | MR_ITS ---
EXAMINATION: MR cervical spine wo con DATE: 06/10/2024 13:14 INDICATION: Pain in right shoulder and right upper limb. TECHNIQUE: Magnetic resonance imaging (MRI) of the cervical spine was performed without intravenous c ontrast. COMPARISON: None FINDINGS: There is 7 degrees dextrocurvature of cervical spine. There is kyphosis of cervical spine. Vertebral body heights are normal. There is severely decreased disc height at C4-C5 and C5-C6, mildly decreased disc height at C6-C7, and moderately decreased disc height at C7-T1. The spinal cord signa l intensity is normal. The following disc levels are specifically discussed: C2-C3: There is a central extrusion. There is no uncovertebral joint osteoarthritis. There is mild ri ght and severe left facet joint osteoarthritis. There is mild left neural foraminal stenosis. There i s mild central canal stenosis. C3-C4: There is a central extrusion. There is no uncovertebral joint osteoarthritis. There is moderat e right and severe left facet joint osteoarthritis. There is mild right and moderate left neural fora saroj stenosis. There is mild central canal stenosis. C4-C5: The disc is bulging. There is severe bilateral uncovertebral joint osteoarthritis. There is mi ld bilateral facet joint osteoarthritis. There is mild bilateral neural foraminal stenosis. There is moderate central canal stenosis with ventral and dorsal indentation of the spinal cord. C5-C6: The disc is bulging. There is severe bilateral uncovertebral joint osteoarthritis. There is mo derate right and severe left facet joint osteoarthritis. There is mild bilateral neural foraminal tammie nosis. There is moderate central canal stenosis with ventral and dorsal indentation of the spinal cor d. C6-C7: The disc is bulging. There is severe bilateral uncovertebral joint osteoarthritis. There is mi ld bilateral facet joint osteoarthritis. There is mild right and moderate left neural foraminal steno sis. There is mild central canal stenosis with ventral indentation of the spinal cord. C7-T1: The disc is bulging. There is severe bilateral uncovertebral joint osteoarthritis. There is mo derate right and severe left facet joint osteoarthritis. There is moderate bilateral neural foraminal stenosis. There is mild central canal stenosis. IMPRESSION: 1. Severe cervical spondylosis. Reviewed, dictated and finalized at location A. NTAMINATOR
--- NOTE | ~2024-06-10 | MR_ITS ---
EXAMINATION: MR shoulder RT wo con DATE: 06/10/2024 13:14 INDICATION: Right shoulder pain TECHNIQUE: Magnetic resonance imaging (MRI) of the right shoulder was performed without intravenous c ontrast. Sequences included axial PD-weighted FS FSE, coronal oblique PD-weighted FS FSE, coronal obl ique T2-weighted FS FSE, sagittal PD-weighted FS FSE, and sagittal T1-weighted SE. COMPARISON: Right shoulder radiographs dated 04/29/2024 and MRI dated 03/01/2023 FINDINGS: Coracoacromial arch: The acromion undersurface is flat in morphology (type I). Small subacromial spur at the acromial inse rtion of the normal coracoacromial ligament. Moderate acromioclavicular osteoarthritis with small inf eriorly directed osteophyte at the lateral head of the clavicle. Rotator cuff: Moderate supraspinatus and displaced tendinopathy with full-thickness tear extending 2.5 cm AP along the greater tuberosity insertion of the entire supraspinatus tendon and anterior third of the infrasp inatus tendon. The tear continues posteriorly as a partial-thickness articular sided tear of the cent ral third of the infraspinatus tendon. Minimal amount of tendon tissue along the superior facet. Ther e is 3.5 cm medial retraction of the supraspinatus tear margin which is positioned at level of the la aldo and lateral margins of the clavicle. Moderate supraspinatus tendinopathy without tear. The teres minor tendon is normal. There is medial retraction of the supraspinatus muscle belly with decrease c ross-sectional area and flat cephalad margin at the level of the neck of the glenoid but without sign ificant fatty atrophy. There is new mild fatty atrophy of the supraspinatus muscle belly. Biceps tendon, glenoid labrum and glenohumeral cartilage: Mild tendinopathy and longitudinal split tear of the intra-articular long head biceps tendon. The ext ra articular portion of the tendon is normal. There is focal posterior extension of a SLAP tear begin tarun anteriorly at the 12:00 position of the superior glenoid labrum and now extending posteriorly to the 10:00 position. Unchanged degenerative tearing of the inferior glenoid labrum which is partially replaced by marginal osteophytes along the 6:00-o'clock position of the anteroinferior to inferior g lenoid labrum. Again seen is chondral malacia the humeral head including shallow chondral ulceration at the apical and anteroapical aspect of the humeral head is also a new deeper chondral fissure with chondral delamination extending 5 mm posteriorly under a nondisplaced chondral flap at the apex of th e humeral head. Additional deeper chondral ulceration without degenerative subchondral changes along the inferomedial aspect of the humeral head. There is new SUBARTICULAR cystlike and edema-like signal change underlying small focus of deep chondral fissuring at the inferior glenoid. Fluid: Small glenohumeral joint effusion with mild synovitis at the axillary and posterior recesses. The flu id decompresses both into the deep subscapular recess as well as through the full-thickness rotator c uff tear into the subacromial/subdeltoid bursa. No loose osteochondral bodies. Bones: There is additional mild marrow edema along the inferolateral margin of the acromion. No fracture or pathologic marrow replacing process. Chronic cystic change along the middle facet of the greater tube rosity. IMPRESSION: 1. Again seen is moderate supraspinatus and infraspinatus tendinopathy with new 3.5 x 2.5 cm full-thi ckness rotator cuff tear involving the entire greater tuberosity footplate of the supraspinatus and a nterior third of the infraspinatus tendon. 2. Mild progression in still mild glenohumeral osteoarthritis with regions of moderate and high-grade chondromalacia. 3. Unchanged degenerative change at the inferior glenoid labrum with mild more posterior progression of a SLAP tear at the superior canal posterior superior glenoid labrum. 4. Mild tendinopathy and new longitudinal split tear of the intra-articular long head biceps tendon. 5. Moderate acromioclavicular osteoarthritis. Reviewed, dictated and finalized at location B. ESTATE MANAGER IMPRESSION: 1. Again seen is moderate supraspinatus and infraspinatus tendinopathy with new 3.5 x 2.5 cm full-thickness rotator cuff tear involving the entire greater tub erosity footplate of the supraspinatus and anterior third of the infraspinatus tendon. 2. Mild progression in still mild glenohumeral osteoarthritis with regions of m oderate and high-grade chondromalacia. 3. Unchanged degenerative change at the inferior glenoid labrum with mild more posterior progression of a SLAP tear at the superior canal posterior superior g lenoid labrum. 4. Mild tendinopathy and new longitudinal split tear of the intra-articular lowell g head biceps tendon. 5. Moderate acromioclavicular osteoarthritis.
== END 2024-06-10 11:52 | disposition home or self-care (01) ==
LOC: ANHIMG 11:53
PROVIDERS: PCP Nurse Practitioner Family; Visit Provider Nurse Practitioner Family
DX: M43.02 Spondylolysis, cervical region (principal); M75.121 Complete rotator cuff tear or rupture of right shoulder, not specified as traumatic; S43.431A Superior glenoid labrum lesion of right shoulder, initial encounter; M67.813 Other specified disorders of tendon, right shoulder; M19.011 Primary osteoarthritis, right shoulder; M94.211 Chondromalacia, right shoulder; X58.XXXA Exposure to other specified factors, initial encounter; M79.2 Neuralgia and neuritis, unspecified; M25.78 Osteophyte, vertebrae; M47.9 Spondylosis, unspecified; M48.02 Spinal stenosis, cervical region; R29.898 Other symptoms and signs involving the musculoskeletal system
CPT/HCPCS: 72141; 73221

== ENCOUNTER 2024-07-17 10:31 | Emergency (ER) | payer OTHER, SELFPAY ==
--- NOTE | ~2024-07-17 | XR_ITS ---
EXAMINATION: XR chest 2V 07/17/2024 11:07 INDICATION: Cough and chest heaviness PROCEDURE: 2 view chest COMPARISON: 08/02/2023 FINDINGS: The lungs are clear. The cardiomediastinal silhouette is within normal limits. There are no pleural effusions. There is no pneumothorax suspected. IMPRESSION: 1: NO ACUTE CARDIOPULMONARY DISEASE. Reviewed, dictated and finalized at location B. PRODUCTION MANAGER
[2024-07-17 10:51] VITALS: BP 132/72; PULSE 88; RESP 16; TEMP 36.6; O2SAT 99
--- NOTE | 2024-07-17 10:55 | ECG_ITS ---
Test Date: 2024-07-17 11:13:44 Measurements Intervals [place] Rate: 77 P: 33 OR: 202 QRS: 39 QRSD: 98 T: 66 QT: 382 QTc: 433 Interpretive Statements SINUS RHYTHM Compared to ECG 02/22/2024 16:48:57 NO SIGNIFICANT CHANGES Electronically Signed On 07-18-2024 11:55:39 ORDER PULLER by Jami Manning M.D.
--- NOTE | 2024-07-17 10:55 | ED.URI ---
HPI - URI/Sore Throat General Chief Complaint: Upper Respiratory Infection Stated Complaint: LOSING VOICE/RUNNY NOSE/COUGH Time Seen by Provider: 07/17/24 10:55 Source: patient Mode of arrival: ambulatory Limitations: no limitations History of Present Illness HPI Narrative: Mallory is a 78-year-old female patient presenting to the clinic today with complaints of losing voice, runny nose, cough, and chest heaviness/slight shortness of breath. She reports the chest heaviness started last night into this morning and this prompted her to come into the clinic today. States her mother is also ill with similar symptoms but seems to be getting better. Denies any chest pain currently. Denies any fever, chills, or body aches. Cough is nonproductive at this time. MD elicited complaint: cough, nasal congestion and other (Chest heaviness, losing voice) Related Data Home Medications ?Medication ?Instructions ?Recorded ?Confirmed ?Last Taken ?Type fluticasone propionate 50 2 spray intranasal BID PRN Allergy 12/18/23 07/17/24 Unknown History mcg/actuation nasal Symptoms spray,suspension acetaminophen 650 mg 650 mg PO Q8H 03/24/24 07/17/24 Unknown History tablet,extended release (Tylenol Arthritis Pain) doxycycline hyclate 50 mg capsule 50 mg PO .prn 06/24/24 07/17/24 Unknown History Allergies Allergy/AdvReac Type Severity Reaction Status Date / Time lisinopril AdvReac Intermediate Cough Verified 07/17/24 10:54 Review of Systems Review of Systems: Pertinent positives per HPI. Patient denies any fever, chills, rash, headache, visual changes, dizziness, chest pain, palpitations, nausea, vomiting, diarrhea, constipation, abdominal pain, or any urinary issues. [facility] Past Medical History Medical History Right rotator cuff tear Thyroid disorder Shoulder pain, right Strain of right biceps Surgical History Surgical History Hx of appendectomy H/O partial thyroidectomy H/O breast biopsy Family History Family History Sibling Leukemia Father Family history of lung cancer Mother Family history of heart disease in male family member before age 55 Family history of cardiovascular disease Other Family history of malignant neoplasm of breast Social History Social History Years smoked: 2 Smoking status: Former smoker Tobacco type: cigarettes Second hand tobacco smoke exposure: Yes Alcohol intake: never Substance use: never Substance use type: does not use Do You Feel Safe in your Home?: Yes Lack of Transportation: No Lack of Food: Never True Current Housing: I Have Housing Concerned About Future Housing: No Difficulty Paying Gas/Electric Bills: No Difficulty Paying for Meds: No Currently Unemployed: No Education: Trade/Vocational Certificate Difficulty w/ Childcare or Family Care: No Living arrangements: with family 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 There is no relevant family history pertinent to the patient complaint. Exam Narrative: General: Well-developed, well nourished, in no apparent distress Head: Normocephalic, atraumatic Eyes: Pupils equally round and reactive to light bilaterally, EOM intact, sclera and conjunctive clear, no discharge, lids normal Ears: TMs intact and clear, ear canals clear, no drainage, grossly hearing normal. Nose: Nares patent, clear nasal discharge, no inflammation, no sinus tenderness. Mouth: Oral pharynx without lesions or masses, good dentition, MMM. Neck: Supple, trachea midline, no enlargement of anterior or posterior cervical nodes, no thyroid masses or goiter palpable. Cardio: Regular rate and rhythm, s1 and s2 normal, no murmur appreciated. Resp: Clear to auscultation bilaterally, no rhonchi, rales, wheezing or rubs Course Course Emergency Course: Portions of this record may have been created with voice recognition software. Level of Care: Express Care Visit Vital Signs Vital signs: Vital Signs Temperature 36.6 C 07/17/24 10:51 Pulse Rate 88 07/17/24 10:51 Respiratory Rate 16 07/17/24 10:51 Blood Pressure 132/72 12/19/24 10:51 Pulse Oximetry 99 07/17/24 10:51 Temperature 36.6 C 07/17/24 10:51 Pulse Rate 88 07/17/24 10:51 Respiratory Rate 16 07/17/24 10:51 Blood Pressure 132/72 07/17/24 10:51 Pulse Oximetry 99 07/17/24 10:51 Vital signs reviewed MDM - URI/Sore Throat MDM Narrative Medical decision making narrative: At the time of visit patient is resting comfortably on the exam table. Patient appears to be nontoxic. EKG: EKG was performed and shows sinus rhythm with a heart rate of 77 beats per minute without ST elevation, does have some slight depression in V6 leads. Diagnostics: Chest x-ray was performed and is negative for any acute cardiopulmonary process. Plan: I suspect patient has URI with cough and congestion. Prescription for prednisone was sent to the pharmacy. Supportive measures were discussed with the patient and they voiced understanding discharge instructions and agrees to treatment plan. Return precautions reviewed Differential Diagnosis Differential diagnosis: Likely sinusitis, viral infection, influenza and pharyngitis Imaging Data Radiologist's impression: ITS Impressions Chest X-Ray 07/17/24 11:24 IMPRESSION: 1: NO ACUTE CARDIOPULMONARY DISEASE. ECG Data EKG #1: Attestation: I personally reviewed and interpreted this ECG as follows: ECG completion date: 07/17/24 ECG completion time: 11:13 Interpretation: EKG shows sinus rhythm with heart rate 77 beats per minute with slight ST depression in lead V 6. No other ST depression was seen on EKG. MN intervals 202 milliseconds, QRS durations 98 milliseconds, QT-QTC is 382-4 her in 13, P-R-T axis is 33 39 66 Discharge Plan Discharge Clinical Impression: Upper respiratory infection Qualifiers: URI type: unspecified URI Qualified Code(s): J06.9 - Acute upper respiratory infection, unspecified Patient Disposition: Home, Self-Care Condition: Stable Instructions: Antibiotic Form, Cold Symptoms (ED) Additional Instructions: EKG shows sinus rhythm Chest x-ray shows no acute cardiopulmonary process Take prescription medications only as prescribed Increase fluids and stay well hydrated Tylenol/motrin for pain/fever Flonase and OTC antihistamines as directed Vicks vapor rub to open sinuses Sinus rinses for congestion Cepacol spray, cough drops, throat lozenges, warm tea with honey/lemon, gargle salt water to soothe throat BRAT diet for diarrhea Clear liquids x 24 hours then advance as tolerated for nausea/vomiting Go to the ED if you develop a worsening in your condition- high fever not controlled by Tylenol or Motrin, dehydration, weakness, lethargy, shortness of breath, or chest pain. Follow up with your PCP in 3-5 days if symptoms persist. Patient Language: Syrian Prescriptions: New prednisone 20 mg tablet 40 mg PO DAILY 5 Days Qty: 10 0RF No Action fluticasone propionate 50 mcg/actuation spray,suspension 2 spray INTRANASAL BID PRN (Reason: Allergy Symptoms) doxycycline hyclate 50 mg capsule 50 mg PO .prn acetaminophen [Tylenol Arthritis Pain] 650 mg tablet extended release 650 mg PO Q8H levothyroxine 75 mcg tablet 75 mcg PO .COMPLEX Qty: 90 1RF Rx Instructions: 75 mcg PO daily Sunday through Sunday losartan-hydrochlorothiazide 100-25 mg tablet 1 tablet PO DAILY Qty: 90 1RF Follow-up/Referrals: Kayla Jack APRN [Primary Care Provider] - Time of Disposition: 11:36 Quality NIHSS Nursing Documentation ED NIHSS nursing documentation: reviewed/agree
== END 2024-07-17 11:45 | disposition home or self-care (01) ==
PROVIDERS: Emergency Provider Nurse Practitioner Family; PCP Nurse Practitioner Family
DX: J06.9 Acute upper respiratory infection, unspecified (principal); Z87.891 Personal history of nicotine dependence; E07.9 Disorder of thyroid, unspecified; Z90.89 Acquired absence of other organs
CPT/HCPCS: 71046; 93005; 99213; G0463

== ENCOUNTER 2024-10-06 11:42 | Emergency (ER) | payer OTHER, SELFPAY ==
--- NOTE | ~2024-10-06 | XR_ITS ---
EXAMINATION: XR finger 4th LT min 2V DATE: 10/06/2024 12:08 INDICATION: Left hand fourth digit injury. TECHNIQUE: 5 views of left hand fourth digit were obtained. COMPARISON: None. FINDINGS: There is a punctate avulsion fracture of dorsal base of fourth distal phalanx with 2 mm dis traction. Joint spaces are normal. IMPRESSION: 1. Punctate avulsion fracture of dorsal base of fourth distal phalanx. Reviewed, dictated and finalized at location B.
[2024-10-06 11:56] VITALS: BP 140/68; PULSE 72; RESP 18; TEMP 36.8; O2SAT 97
--- NOTE | 2024-10-06 11:58 | ED_ITS ---
HPI - Extremity Injury (Upper) General Chief Complaint: Extremity Injury, Upper Stated Complaint: Left hand 4th finger injury Time Seen by Provider: 10/06/24 11:58 Source: patient Mode of arrival: ambulatory Limitations: no limitations History of Present Illness HPI narrative: 78y/o female presented for c/o pain, swelling and bruising to the left ring finger after an injury yesterday. States the finger was injured when it was wrapped in a leash when her dog was attacked. Pt reports she cannot straighten the end of the finger. Denies numbness, tingling or weakness. Related Data Home Medications ?Medication ?Instructions ?Recorded ?Confirmed ?Last Taken ?Type fluticasone propionate 50 2 spray intranasal BID PRN Allergy 12/18/23 07/17/24 Unknown History mcg/actuation nasal Symptoms spray,suspension acetaminophen 650 mg 650 mg PO Q8H 03/24/24 07/17/24 Unknown History tablet,extended release (Tylenol Arthritis Pain) doxycycline hyclate 50 mg capsule 50 mg PO .prn 06/24/24 07/17/24 Unknown History Allergies Allergy/AdvReac Type Severity Reaction Status Date / Time lisinopril AdvReac Intermediate Cough Verified 10/06/24 11:58 Review of Systems Review of Systems: CONSTITUTIONAL: Denies body aches, fever, chills CARDIOVASCULAR: Denies chest pain, palpitations, or edema. RESPIRATORY: Denies cough or dyspnea. SKIN: Denies wounds. MUSCULOSKELETAL: Denies back pain, joint pain, or myalgia. NEUROLOGIC: Denies numbness, tingling, or weakness. All systems reviewed & are unremarkable except as noted in HPI and below PMFSH Past Medical History Medical History Right rotator cuff tear Thyroid disorder Shoulder pain, right Strain of right biceps Surgical History Surgical History Hx of appendectomy H/O partial thyroidectomy H/O breast biopsy Family History Family History Sibling Leukemia Father Family history of lung cancer Mother Family history of heart disease in male family member before age 55 Family history of cardiovascular disease Other Family history of malignant neoplasm of breast Social History Social History Years smoked: 2 Smoking status: Former smoker Tobacco type: cigarettes Second hand tobacco smoke exposure: Yes Alcohol intake: never Substance use: never Substance use type: does not use Do You Feel Safe in your Home?: Yes Lack of Transportation: No Lack of Food: Never True Current Housing: I Have Housing Concerned About Future Housing: No Difficulty Paying Gas/Electric Bills: No Difficulty Paying for Meds: No Currently Unemployed: No Education: Trade/Vocational Certificate Difficulty w/ Childcare or Family Care: No Living arrangements: with family 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 Please see nursing chart for further information. There is no relevant family history pertinent to the presenting complaint Exam Narrative: GENERAL: Well-appearing CHEST: Speaks in full sentences. No respiratory distress. HEART: Regular rate and rhythm. Normal and equal peripheral pulses. EXTREMITIES: Left 4th digit with bruising to the MCP, and tenderness, bruising with swelling to the DIP. full range of motion of the digit, however the DIP is in flexion approx 30 degrees, pt tolerates passive extension of the DIP. Digit has normal strength and sensation, No open wounds, pulse palpable and equal bilaterally, skin warm, dry, pink. Capillary refill less than 3 seconds. SKIN: Warm, dry NEURO: Alert and oriented x3. PSYCH: Normal mood and affect Course Course Emergency Course: Patient is aware of diagnosis, understands and agrees to treatment plan. Anticipatory guidance given. Patient agrees to follow-up as directed and is aware of reasons to seek care at the emergency department. Portions of this record may have been created with voice recognition software Level of Care: Express Care Visit Vital Signs Vital signs: Vital Signs Oxygen Delivery Room Air 10/06/24 11:55 Temperature 98.3 F 10/06/24 11:56 Pulse Rate 72 10/06/24 11:56 Respiratory Rate 18 10/06/24 11:56 Blood Pressure 140/68 10/06/24 11:56 Pulse Oximetry 97 10/06/24 11:56 Oxygen Delivery Room Air 10/06/24 11:56 Reviewed MDM - Extremity Injury (Upper) MDM Narrative Medical decision making narrative: Discussed physical exam findings and Xray. Pt's 4th digit DIP is in flexion approx 30 degrees, metal splint applied. Pt is advised to f/u with hand specialist regarding the alignment, v/u. Dr Cameron's contact info provided. Advised supportive measures and signs/symptoms to go to the ER. Pt is appropriate for outpt treatment and f/u. Differential Diagnosis Differential diagnosis: Likely finger sprain, dislocation of finger and other (finger fracture) Imaging Data Radiologist's impression: Patient: Mallory Toure : 1945 MR#: [id number] Age: 78 Acct:[id number] Loc: [facility] ADM Date: 10/06/24Attending Dr: Ordering Physician: Sheila Dick APRN Date of Service: 10/06/24 Procedure(s): XR finger 4th LT min 2V Accession Number(s): [id number] cc: Sheila Dick APRN; Kayla Jack APRN~ EXAMINATION: XR finger 4th LT min 2V DATE: 10/06/2024 12:08 INDICATION: Left hand fourth digit injury. TECHNIQUE: 5 views of left hand fourth digit were obtained. COMPARISON: None. FINDINGS: There is a punctate avulsion fracture of dorsal base of fourth distal phalanx with 2 mm distraction. Joint spaces are normal. IMPRESSION: 1. Punctate avulsion fracture of dorsal base of fourth distal phalanx. Discharge Plan Discharge Clinical Impression: Avulsion fracture of distal phalanx of finger Qualifiers: Encounter type: initial encounter Fracture type: closed Qualified Code(s): S62.639A - Displaced fracture of distal phalanx of unspecified finger, initial encounter for closed fracture Patient Disposition: Home, Self-Care Condition: Stable Instructions: Finger Fracture (ED) Additional Instructions: Rest, ice and elevate the left hand Motrin 600mg every 8 hours, as needed, for pain (take with food). Tylenol 1000mg every 8 hours. Keep splint clean, dry and in place. You can remove the splint to wash your hands. Go to the ER immediately for increased pain, tingling/numbness, swelling, redness, etc. Follow up with the Hand specialist in 1-2 days for further evaluation - please call today for an appointment. Patient Language: Citizen Of [place] Prescriptions: No Action prednisone 20 mg tablet 40 mg PO DAILY 5 Days Qty: 10 0RF fluticasone propionate 50 mcg/actuation spray,suspension 2 spray INTRANASAL BID PRN (Reason: Allergy Symptoms) doxycycline hyclate 50 mg capsule 50 mg PO .prn acetaminophen [Tylenol Arthritis Pain] 650 mg tablet extended release 650 mg PO Q8H losartan-hydrochlorothiazide 100-25 mg tablet 1 tablet PO DAILY Qty: 90 1RF levothyroxine 75 mcg tablet 75 mcg PO .COMPLEX Qty: 90 1RF Rx Instructions: 75 mcg PO daily Sunday through Sunday Follow-up/Referrals: Taty Cameron MD [Physician] - (Punctate avulsion fracture of dorsal base of fourth distal phalanx.) Kayla Jack APRN [Primary Care Provider] - Time of Disposition: 12:32
--- NOTE | 2024-10-06 12:41 | PC.NURSE ---
+pms post splint application
== END 2024-10-06 12:35 | disposition home or self-care (01) ==
PROVIDERS: Emergency Provider Nurse Practitioner Family; PCP Nurse Practitioner Family
DX: S62.635A Displaced fracture of distal phalanx of left ring finger, initial encounter for closed fracture (principal); X58.XXXA Exposure to other specified factors, initial encounter; E07.9 Disorder of thyroid, unspecified; Z90.89 Acquired absence of other organs; Z87.891 Personal history of nicotine dependence
CPT/HCPCS: 29130; 73140; 99214; G0463

== ENCOUNTER 2024-10-07 08:27 | Outpatient (CLI) | payer OTHER, SELFPAY ==
--- NOTE | ~2024-10-07 | MM_ITS ---
EXAMINATION: MM screening cammy BI w harpreet HISTORY: Screening mammogram TECHNIQUE: Craniocaudal and mediolateral oblique 3-D tomosynthesis images were obtained and synthetic 2-D images were generated. CAD analysis was submitted and interpreted. COMPARISON: 09/26/2023, 08/03/2022 BREAST PARENCHYMAL COMPOSITION:Not Dense. There are scattered areas of fibroglandular density. FINDINGS: No suspicious mass, calcification, or architectural distortion are identified in either armand ast to suggest malignancy. There has been no suspicious interval change. IMPRESSION: No mammographic evidence of malignancy. Recommend routine screening mammography in one year. BI-RADS Category 1: Negative Reviewed, dictated and finalized at location .
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
--- OUTSIDE RECORDS SUMMARY | 2024-10-07 08:47 | XMS_ITS | Referral Summary ---
Author Organization [facility] Address [address] [place] [address] Care Team Providers Care V Belt Inspector Name Role Phone Timoteo Lovell DO Primary Care Provider [phone] Allergies No known active allergies Medications levothyroxine (SYNTHROID) 75 mcg tablet TAKE 1 TABLET BY MOUTH EVERY DAY SUNDAY THROUGH Sunday02/25/2021 Active Active Problems Problem Noted Date Diagnosed Date Bilateral hearing loss 04/11/2021 Assessment & Plan (04/24/2022 5:56 PM CDT): Avoid ear cleaning techniques Follow up as needed Continue hearing aids Assessment & Plan (04/11/2021 10:41 AM CDT): [facility] Social History Tobacco Use Types Packs/Day Years Used Date Smoking Tobacco: Never Smokeless Tobacco: Never Personal Safety Answer Date Recorded Getting School Help Needed Not on file 09/22 Comments Unknown Sex and Gender Information Value Date Recorded Sex Assigned at Not on file Legal Sex Female 12:31 PM RECHARGER Gender Identity Not on file Sexual Orientation Not on file Last Filed Vital Signs Vital Sign Reading Time Taken Comments Blood Pressure 130/71 04/24/2022 2:56 PM CDT Pulse 74 04/24/2022 2:56 PM CDT Temperature 36.3 C (97.4 F) 04/24/2022 2:56 PM CDT Respiratory Rate - - Oxygen Saturation 98% 04/24/2022 2:56 PM CDT Inhaled Oxygen Concentration - - Weight 65.8 kg (145 lb 1.6 oz) 04/24/2022 2:56 P M CDT Height 152.4 cm (5') 04/24/2022 2:56 PM CDT Body Mass Index 28.34 04/24/2022 2:56 PM CDT Plan of Treatment Not on file Insurance [facility] Care Teams V Belt Inspector Relationship Specialty Start Date End Date Timoteo Lovell DO PCP - General Internal Medicine 01/17/21
--- OUTSIDE RECORDS SUMMARY | 2024-10-07 08:47 | XMS_ITS | Encounter Summary ---
Author Organization [facility] Address [address] [place] [address] Care Team Providers Care Football Scout Name Role Phone Timoteo Lovell DO Primary Care Provider [phone] Encounter Details Date Type Department Care Team (Late st Contact Info) Description 04/21/2020 Lab Requisition [facility] Derm[facility] Lab [address] [facility] [place] [address] Neeta Pappas MD [address] [facility] [facility] [address] DEPT [place] [address] Social History Tobacco Use Types Packs/Day Years Used Date Smoking Tobacco: Never Assessed Sex and Gender Information Value Date Recorded Sex Assigned at Not on file Gender Identity Not on file Sexual Orientation Not on file documented as of this encounter Plan of Treatment Not on file documented as of this encounter Procedures Procedure Name Priority Date/Time Associated Diagnosis Comments DERMATOPATHOLOGY Routine 04/20/2020 12:0 0 AM CDT documented in this encounter Results * DERMATOPATHOLOGY (04/20/2020 12:00 AM CDT) Case Report Dermatopathology Report Case: [id number] Authorizing Provider: Neeta Pappas MD Collected: 04/20/2020 12:00 AM Ordering Location: [facility]erm[facility] Lab Received: 04/21/2020 01:44 PM Pathologist: Humaira Platt MD Specimens: A) - Skin, right shoulder B) - Skin, right breast 0 3:24 PM CDT DERMATOPATHOLOGY LABORATORY Final Diagnosis Specimen A. SKIN, right shoulder: ACTINIC KERATOSIS (L57.0) SOLAR LENTIGO (L81.4) Specimen B. SKIN, right breast: DERMATOFIBROMA (D23.9) 0 3:24 PM CDT DERMATOPATHOLOGY LABORATORY Clinical History A: R/O nevus, irregular color. B: R/O BCC, non-healing. 0 3:24 PM CDT DERMATOPATHOLOGY LABORATORY Gross Description Specimen A: Received is one formalin filled container labeled with the patient's name and designated right shoulder. The specimen consists of a shave biopsy measuring [id number]. Jar 0. Specimen B: Received is one formalin filled container labeled with the patient's name and designated right breast. The specimen consists of a shave biopsy measuring [id number]. Jar 0. 0 3:24 PM CDT DERMATOPATHOLOGY LABORATORY Microscopic Description Specimen A. SKIN, right shoulder: There is focal parakeratosis. The lower half of the epidermis shows disorderly maturation of keratinocytes with nuclear pleomorphism. There is adjacent orthokeratosis. There is a slight increase in epidermal thickness with lentiginous buds of hyperpigmented keratinocytes. The number of melanocytes is only mildly increased. In the dermis, there is basophilic degeneration of elastic fibers. Specimen B. SKIN, right breast: There is epidermal hyperplasia. Within the dermis, there are fibrohistiocytic cells in haphazard array among coarse collagen bundles. 0 3:24 PM CDT DERMATOPATHOLOGY LABORATORY Disclaimer An external and internal positive and negative controls are appropriate for the histochemical, immunohistochemical and immunofluorescence stain(s) in this case (if any), except where stated explicitly. The performance characteristics of the stain(s) cited in this report were developed and its performance characteristic determined by the Dermatopathology Laboratory at [facility], directed by Dr. Nilay Hutton. These tests need not be, and therefore are not, approved by the [place] Food and Drug Administration. The tests are used for clinical purposes. Billing Codes Specimen Charges Stain Charges 64743 33730 1 1 0 3:24 PM CDT DERMATOPATHOLOGY LABORATORY Embedded Images 0 3:24 PM CDT DERMATOPATHOLOGY LABORATORY Pathology/Cytology TISSUE SPECIMEN FROM SKIN / Unknown 04/20/2020 04/21/2020 1:44 PM CDT Miscellaneous samples (specimen) TISSUE SPECIMEN FROM SKIN / Unknown 04/20/2020 04/21/2020 1:44 PM CDT Neeta Pappas MD LAB - PATHOLOGY/CYT OLOGY ORDERABLES DERMATOPATHOLOGY LABORATORY [facility] - Department of Dermatology [facility] Medicine [address] [place] [address], [address] [phone] documented in this encounter Visit Diagnoses Not on filedocumented in this encounter Care Teams Football Scout Relationship Specialty Start Date End Date Timoteo Lovell DO [address] [place] [address] PCP - General 01/13/20 documented as of this encounter
--- OUTSIDE RECORDS SUMMARY | 2024-10-07 08:47 | XMS_ITS | Encounter Summary ---
Author Organization [facility] Address [address] [place] [address] Care Team Providers Care Tight Barrel Inspector Name Role Phone Timoteo Lovell DO Primary Care Provider Encounter Details Date Type Department Care Team (Late st Contact Info) Description 01/13/2020 Lab Requisition [facility] DermPath Lab [address] [facility], [facility] [place] [address] Neeta Pappas MD [address] [facility] [address] [place] [address] Social History Tobacco Use Types Packs/Day Years Used Date Smoking Tobacco: Never Assessed Sex and Gender Information Value Date Recorded Sex Assigned at Not on file Gender Identity Not on file Sexual Orientation Not on file documented as of this encounter Plan of Treatment Not on file documented as of this encounter Procedures Procedure Name Priority Date/Time Associated Diagnosis Comments DERMATOPATHOLOGY Routine 01/12/2020 12:0 0 AM CDT documented in this encounter Results * DERMATOPATHOLOGY (01/12/2020 12:00 AM CDT) Case Report Dermatopathology Report Case: [id number] Authorizing Provider: Neeta Pappas MD Collected: 01/12/2020 12:00 AM Ordering Location: [facility] DermPath Lab Received: 01/13/2020 12:15 PM Pathologist: Tara Toledo MD Specimen: Skin, right upper back 0 12:58 PM CDT DERMATOPATHOLOGY LABORATORY Final Diagnosis Specimen A. SKIN, right upper back: BASAL CELL CARCINOMA, SUPERFICIAL MULTIFOCAL (C44.519) 0 12:58 PM CDT DERMATOPATHOLOGY LABORATORY Clinical History R/O BCC, irritated 0 12:58 PM CDT DERMATOPATHOLOGY LABORATORY Gross Description Specimen A: Received is one formalin filled container labeled with the patient's name and designated right upper back. The specimen consists of a shave biopsy measuring 12x9x1 mm. Jar 0. 0 12:58 PM CDT DERMATOPATHOLOGY LABORATORY Microscopic Description Specimen A. SKIN, right upper back: Attached to the undersurface of the epidermis, there are small aggregates of basaloid cells with a high nuclear to cytoplasmic ratio and peripheral palisading. 0 12:58 PM CDT DERMATOPATHOLOGY LABORATORY Disclaimer An external and internal positive and negative controls are appropriate for the histochemical, immunohistochemical and immunofluorescence stain(s) in this case (if any), except where stated explicitly. The performance characteristics of the stain(s) cited in this report were developed and its performance characteristic determined by the Dermatopathology Laboratory at [facility], directed by Dr. Nilay Hutton. These tests need not be, and therefore are not, approved by the [place] Food and Drug Administration. The tests are used for clinical purposes. Billing Codes Specimen Charges Stain Charges 50378 1 0 12:58 PM CDT DERMATOPATHOLOGY LABORATORY Embedded Images 0 12:58 PM CDT DERMATOPATHOLOGY LABORATORY Pathology/Cytolog y TISSUE SPECIMEN FROM SKIN / Unknown 01/12/2020 01/13/2020 12:15 PM CDT Neeta Pappas MD LAB - PATHOLOGY/CYT OLOGY ORDERABLES DERMATOPATHOLOGY LABORATORY [facility] - Department of Dermatology [facility]/[address] [address], [facility] [phone] documented in this encounter Visit Diagnoses Not on filedocumented in this encounter Care Teams Tight Barrel Inspector Relationship Specialty Start Date End Date Timoteo Lovell DO [address] [place] [address] PCP - General 01/13/20 documented as of this encounter
--- OUTSIDE RECORDS SUMMARY | 2024-10-07 08:47 | XMS_ITS | Clinical Summary ---
Author Organization [facility] Address [address] [place] [address] Care Team Providers Care Lumber Handler Name Role Phone Vincent Lovelle Zoe PETTIT Primary Care Provider [phone] Source Comments [facility],non-owned Affiliates and Associated Physician Practices is amultiple site organization consisting of ambulatory clinics and hospital sitesin [place], [place], [place] and [place]. This disclosure is being madepursuant to the Care Everywhere program and may not contain all information available regarding this patient. Last updated 18.[facility] Social History Tobacco Use Types Packs/Day Years Used Date Smoking Tobacco: Never Assessed Sex and Gender Information Value Date Recorded Sex Assigned at Not on file Gender Identity Not on file Sexual Orientation Not on file Plan of Treatment Health Maintenance Due Date Last Done Comments BONE DENSITY TESTING 1945 HEPATITIS C SCREENING 10/08/1963 DTAP/TDAP/TD VACCINES (1 - Tdap) 1964 PNEUMOCOCCAL VACCINE 50+ (1 of 1 - PCV) 10/13/1995 ZOSTER VACCINE (1 of 2) 10/13/1995 Respiratory Syncytial Virus (RSV) Vaccine Pt: or over 60 yrs (1 - 1-dose 75+ series) 2020 COVID-19 VACCINE ( - 2023-2 5 season) 2024 INFLUENZA VACCINE (#1) 2024 DEPRESSION SCREENING 07/30/2024 MEDICARE AWV CALENDAR YEAR 2024 HEPATITIS B VACCINE Aged Out No longe r eligible based on patient's age to complete this topic HIB VACCINE Aged Out No longer eligi ble based on patient's age to complete this topic HPV VACCINE Aged Out No longer eligi ble based on patient's age to complete this topic MENINGOCOCCAL (Group B) VACCINE Aged Out No longer eligible based on patient's age to complete this topic MENINGOCOCCAL VACCINE Aged Out No lowell delmy eligible based on patient's age to complete this topic Care Teams Lumber Handler Relationship Specialty Start Date End Date Timoteo Lovell DO [address] [place], [place] [id number] PCP - General 01/13/20
--- OUTSIDE RECORDS SUMMARY | 2024-10-07 08:47 | XMS_ITS | Referral Summary ---
Author Organization [facility] Address [address] [place] [address] Care Team Providers Care Mortgage Loan Funder Name Role Phone Timoteo Lovell DO Primary Care Provider [phone] Source Comments [facility],non-owned Affiliates and Associated Physician Practices is amultiple site organization consisting of ambulatory clinics and hospital sitesin [place], [place], [place] and [place]. This disclosure is being madepursuant to the Care Everywhere program and may not contain all information available regarding this patient. Last updated 18.[facility] Social History Tobacco Use Types Packs/Day Years Used Date Smoking Tobacco: Never Assessed Sex and Gender Information Value Date Recorded Sex Assigned at Not on file Gender Identity Not on file Sexual Orientation Not on file Plan of Treatment Not on file Care Teams Mortgage Loan Funder Relationship Specialty Start Date End Date Timoteo Loevll DO [address] [place], [place] [id number] PCP - General 01/13/20
--- OUTSIDE RECORDS SUMMARY | 2024-10-07 08:47 | XMS_ITS | Patient Health Summary ---
Author Organization [facility] Address [address] [place] [address] Care Team Providers Care Warehouse Clerk Name Role Phone Timoteo Lovell Primary Care Provider [phone] Note from [facility],non-owned Affiliates and Associated Physician Practices is amultiple site organization consisting of ambulatory clinics and hospital sitesin [place], [place], [place] and [place]. This disclosure is being madepursuant to the Care Everywhere program and may not contain all information available regarding this patient. Last updated 18.[facility] Social History Tobacco Use Types Packs/Day Years Used Date Smoking Tobacco: Never Assessed Sex and Gender Information Value Date Recorded Sex Assigned at Not on file Gender Identity Not on file Sexual Orientation Not on file Procedures * DERMATOPATHOLOGY(Performed 04/20/2020) * DERMATOPATHOLOGY(Performed 02/19/2020) * DERMATOPATHOLOGY(Performed 01/12/2020) Results * DERMATOPATHOLOGY (04/20/2020 12:00 AM CDT) Only the most recent of3 resultswithin the time period is included. Case Report Dermatopathology Report Case: [id number] Authorizing Provider: Neeta Pappas MD Collected: 04/20/2020 12:00 AM Ordering Location: [facility] DermPath Lab Received: 04/21/2020 01:44 PM [...] specimen consists of a shave biopsy measuring 14r1i3hh. Jar 0. Specimen B: Received is one formalin filled container labeled with the patient's name and designated right breast. The specimen consists of a shave biopsy measuring 0t8f4va. Jar 0. 0 3:24 PM CDT DERMATOPATHOLOGY [...] characteristic determined by the Dermatopathology Laboratory at [facility], directed by Dr. Nilay Hutton. These tests need not be, and therefore are not, approved by the [place] Food and Drug Administration. The tests are used for clinical purposes. Billing Codes Specimen Charges Stain Charges 42331 46927 1 1 0 3:24 PM CDT DERMATOPATHOLOGY LABORATORY Embedded Images 0 3:24 PM CDT DERMATOPATHOLOGY LABORATORY Pathology/Cytology TISSUE SPECIMEN FROM SKIN / Unknown 04/20/2020 04/21/2020 1:44 PM CDT Miscellaneous samples (specimen) TISSUE SPECIMEN FROM SKIN / Unknown 04/20/2020 04/21/2020 1:44 PM CDT Neeta Pappas MD LAB - PATHOLOGY/CYT OLOGY ORDERABLES DERMATOPATHOLOGY LABORATORY [facility] - Department of Dermatology [facility] Specialized Medicine [address] [place] [address], [address] [phone] Care Teams Warehouse Clerk Relationship Specialty Start Date End Date Timoteo Lovell DO [address] [place] [address] PCP - General 01/13/20
--- OUTSIDE RECORDS SUMMARY | 2024-10-07 08:47 | XMS_ITS | Encounter Summary ---
Author Organization [facility] Address [address] [facility] [place] [address] Care Team Providers Care Mineral Surveying Technician Name Role Phone Timoteo Lovell DO Primary Care Provider [phone] Encounter Details Date Type Department Care Team (Late st Contact Info) Description 02/20/2020 Lab Requisition [facility] DermPath Lab [address] [facility], [facility] [place] [address] Neeta Pappas MD [address] [facility] [address] [place] [address] Social History Tobacco Use Types Packs/Day Years Used Date Smoking Tobacco: Never Assessed Sex and Gender Information Value Date Recorded Sex Assigned at Not on file Gender Identity Not on file Sexual Orientation Not on file documented as of this encounter Plan of Treatment Not on file documented as of this encounter Procedures Procedure Name Priority Date/Time Associated Diagnosis Comments DERMATOPATHOLOGY Routine 02/19/2020 12:0 0 AM CDT documented in this encounter Results * DERMATOPATHOLOGY (02/19/2020 12:00 AM CDT) Case Report Dermatopathology Report Case: [id number] Authorizing Provider: Neeta Pappas MD Collected: 02/19/2020 12:00 AM Ordering Location: [facility] DermPath Lab Received: 02/20/2020 09:15 AM Pathologist: Tara Toledo MD Specimen: Skin, right upper back 0 1:48 PM CDT DERMATOPATHOLOGY LABORATORY Final Diagnosis Specimen A. SKIN, right upper back: BASAL CELL CARCINOMA (C44.519) APPROXIMATES MARGIN DERMAL SCAR (L90.5) 0 1:48 PM CDT DERMATOPATHOLOGY LABORATORY Clinical History BCC, superficial multifocal, bx proven. Previous Bx: [id number]. 0 1:48 PM CDT DERMATOPATHOLOGY LABORATORY Gross Description Specimen A: Received is one formalin filled container labeled with the patient's name and designated right upper back. The specimen consists of a non-oriented ellipse of skin measuring [id number]. The epidermal surface consists of a centrally located 12x7mm previous biopsy site. The margin is inked green. The 12 o'clock and 6 o'clock tips are submitted in cassette 1. The remainder of the ellipse is serially sectioned and submitted in cassettes 2-4. Jar 0. 0 1:48 PM CDT DERMATOPATHOLOGY LABORATORY Microscopic Description Specimen A. SKIN, right upper back: Within the dermis there are aggregates of basaloid cells with a high nuclear to cytoplasmic ratio and peripheral palisading. This lesion approximates the lateral margin of the specimen in block 3. There are fibroblasts and collagen bundles oriented parallel to the skin surface with elongated blood vessels, some of which are oriented perpendicular to the skin surface. 0 1:48 PM CDT DERMATOPATHOLOGY LABORATORY Disclaimer An external and internal positive and negative controls are appropriate for the histochemical, immunohistochemical and immunofluorescence stain(s) in this case (if any), except where stated explicitly. The performance characteristics of the stain(s) cited in this report were developed and its performance characteristic determined by the Dermatopathology Laboratory at [facility], directed by Dr. Nilay Hutton. These tests need not be, and therefore are not, approved by the [place] Food and Drug Administration. The tests are used for clinical purposes. Billing Codes Specimen Charges Stain Charges 54660 1 0 1:48 PM CDT DERMATOPATHOLOGY LABORATORY Embedded Images 0 1:48 PM CDT DERMATOPATHOLOGY LABORATORY Pathology/Cytolog y TISSUE SPECIMEN FROM SKIN / Unknown 02/19/2020 02/20/2020 9:15 AM CDT Neeta Pappas MD LAB - PATHOLOGY/CYT OLOGY ORDERABLES DERMATOPATHOLOGY LABORATORY [facility] - Department of Dermatology [facility] Ph[facility]bot[facility]/[address] [phone] documented in this encounter Visit Diagnoses Not on filedocumented in this encounter Care Teams Mineral Surveying Technician Relationship Specialty Start Date End Date Timoteo Lovell DO [address] [place] [address] PCP - General 01/13/20 documented as of this encounter
--- OUTSIDE RECORDS SUMMARY | 2024-10-07 08:48 | XMS_ITS | Continuity of Care Document ---
Author Organization [facility] Address [address] [place] [address] Phone Care Team Providers Care School Guard Name Role Phone Rafal Ward MD Unavailable Unavailable Allergies, Adverse Reactions, Alerts Substance Reaction Status Criticality No Known Allergies Active No Inform ation Medications Medication Instructions Dosage Effective Dates (start - stop) Status Comments Synthroid 75 mcg tablet take 1 tablet (75MCG) by oral route every other day - Active Synthroid 50 mcg tablet take 1 tablet (50MCG) by oral route every other day - Active Procedures Procedure Date OFFICE/OUTPATIENT VISIT, EST OFFICE/OUTPATIENT VISIT, EST OFFICE/OUTPATIENT VISIT, EST OFFICE/OUTPATIENT VISIT, EST OFFICE/OUTPATIENT VISIT, EST BIOPSY, SKIN LESION OFFICE/OUTPATIENT VISIT, EST Advance Directives Directive Yes / No Effective Date File Name No Information Encounters Encounter Description Practice Location Reason(s) For Visit Diagnoses Date Provider Providers Copied on Encounter OFFICE/OUTPA TIENT VISIT, EST [facility], [address] [place], [id number], [place] tel:[phone] [facility] Medicine lump on back (chief complaint)breas t spot (chief complaint) LipomaNon-neop lastic nevus [address] L[address]. [address], [place], [address] , [place]. tel:[phone] Referring Provider: Rafal Ward, [address], [place], [address]. 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, [place], [place], [address] , [place]. [phone] Referring Provider: Xiomara Almonte [address], [place], [place], [address]. tel:[phone] OFFICE/OUTPA TIENT VISIT, [facility], [address], [place], [place], [address], [place] tel:[phone] [facility] Hypothyroidsm (chief complaint)eye exam (chief complaint)red spot (chief complaint) Dietary surveillance and counselingHypo thyroidismNevu s, non-neoplastic Abnormal weight gain [address]yles. [address], [place], [place], [address] , [place]. tel:[phone] Referring Provider: Xiomara Almonte [address], [place], [place], [address]. tel:[phone] OFFICE/OUTPA TIENT VISIT, [facility], [address], [place], [place], [address], [place] tel:[phone] [facility] finger laceration (chief complaint) Dietary surveillance and counselingAbra pattie, unspecified [address], [place], [place], [address] , [place]. tel:[phone] Referring Provider: Xiomara Almonte [address], [place], [place], [address]. tel:[phone] OFFICE/OUTPA TIENT VISIT, [facility], [address], [place], [place], [address], [place] tel:[phone] [facility] PInk eye (chief complaint)weigh t gain (chief complaint)mole (chief complaint) Dietary surveillance and counselingNevu s, non-neoplastic Acute conjunctivitis , unspecifiedAbn ormal weight gain 3 [address]. [address], [place], [place], [address] , [place]. tel:[phone] Referring Provider: Rafal Ward, [address] [place] [address] A, [place], [place], [id number]. tel:[phone] [facility], [address], [place], [place], [address], [place] tel:[phone] [facility] Benign neoplasm of other specified sites of skin 2 Ed Lyles. [address] [facility] [address], [place], [place], [address] , [place]. tel:[phone] Referring Provider: Rafal Ward [address] [place] [address] A, [place], [place], [address]. tel:[phone] OFFICE/OUTPA TIENT VISIT, [facility], [address], [place], [place], [address], [place] tel:[phone] [facility] mole (chief complaint)hypot hyroidism (chief complaint) Dietary surveillance and counselingNevu s, non-neoplastic Hypothyroidism 2 [address]. [address], [facility] A, [place], [place], [address] , [place]. tel:[phone] Referring Provider: Rafal Ward [address] [place] [address] A, [place], [place], [address]. tel:[phone] Family History Family Member Type Diagnosis Age At Onset Father Problem (finding) Cancer - lung CA Sister Problem (finding) chronic pain Mother Problem (finding) Coronary artery disease Payers Payer name Insurance type Covered libertarian ID Authoriza tion(s) No Information Social History Type Description Quantity Date Captured Comments Alcohol Use Details Caffeine Use Details Unknown Tobacco Use Status Never smoked tobacco 2014 Smoking Status Never smoker Non-Smoking Tobacco Use Details : No Details Available : No Details Available Sex Female Vital Signs Date / Time: Height Weight BMI Pulse Rate Blood Pressure Temperature Respiratory Rate Body Surface Area Head Circumference BMI percentile Pulse Ox Inhaled Ox 11:26 AM 154.94 cm 138.00 lbs 26.0 7 kg/m eter (2) 66 /min 138/76 mm[Hg] 97.3 F 15 /min Chief Complaint And Reason For Visit From encounter dated '02/16/2015 10:00'. lump on back (chief complaint). Description: Pt notices a large nontender lump on her back for several weeks. Pt denies any pain or any injury breast spot (chief complaint). Description: Pt notices a ? mole on right breast for one month. Pt denies any change in appearance. Pt denies any bleeding Plan Of Treatment Date Type Action Status Goal Zoster vaccine. Due on due Goal Td vaccine. Due on 15 due Goal Depression screening. Due on due Goal Cognitive assessment. Due on due Goal H&P. Due on due Goal Influenza vaccine. Due on due Goal Pneumococcal vaccine. Due on due Goal Breast exam. Due on 015 due Goal DEXA Scan. Due on 5 due Goal WARDROBE CONSULTANT exam. Due on due Goal Diabetes Screening. Due on due Referral Ordered: Plastic Surgery (related to Lipoma) ordered Referral Ordered: Referrals: Plastic Surgery ordered Referral Ordered: OBGYN ordered Referral Ordered: Ophthalmology ordered Referral Ordered: MAMMOGRAM, SCREENING ordered Referral Ordered: Referral: OBGYN. ordered Referral Ordered: Referral: Dermatology. Evaluate and treat. ordered Referral Ordered: Referral: Ophthalmology. ordered Referral Ordered: Referral: Dermatology. ordered History Of Present Illness Encounter Date Complaint History Of Prese nt Illness breast spot Pt notices a ? m ole on right breast for one month. Pt denies any change in appearance. Pt denies any bleeding lump on back Pt notices a lar ge nontender lump on her back for several weeks. Pt denies any pain or any injury Instructions Date Instruction Additional Infor ramsey Dietary counseling Related to Di etary surveillance counseling Decrease caloric intake Related to Dietary surveillance counseling Dietary counseling Related to Di etary surveillance counseling Decrease caloric intake Related to Dietary surveillance counseling Decrease caloric intake Related to Dietary surveillance counseling Dietary counseling Related to Di etary surveillance counseling Dietary counseling Related to Di etary surveillance counseling Decrease caloric intake Related to Dietary surveillance counseling Assessments Type Assessment Date assessment Lipoma assessment Non-neoplastic nevus Mental Status Date Cognitive Assessment Orientation - Riga ed to time, place, person, situation.
--- OUTSIDE RECORDS SUMMARY | 2024-10-07 08:48 | XMS_ITS | Clinical Summary ---
Author Organization [facility] Address [address] [place] [address] Care Team Providers Care Air Conditioning Service Technician Name Role Phone Timoteo Lovell DO Primary Care Provider [phone] Allergies No known active allergies Medications levothyroxine (SYNTHROID) 75 mcg tablet TAKE 1 TABLET BY MOUTH EVERY DAY SUNDAY THROUGH Sunday02/25/2021 Active Active Problems Problem Noted Date Diagnosed Date Bilateral hearing loss 04/11/2021 Assessment & Plan (04/24/2022 5:56 PM CDT): Avoid ear cleaning techniques Follow up as needed Continue hearing aids Assessment & Plan (04/11/2021 10:41 AM CDT): [facility] test - [facility] Surgical History Surgery Date Site/Laterality Comments THYROID SURGERY Social History Tobacco Use Types Packs/Day Years Used Date Smoking Tobacco: Never Smokeless Tobacco: Never Personal Safety Answer Date Recorded Getting School Help Needed Not on file 09/22 Comments Unknown Sex and Gender Information Value Date Recorded Sex Assigned at Not on file Legal 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 Gender Identity Not on file Sexual Orientation Not on file Obstetrics History Last Filed Vital Signs Vital Sign Reading [...] 04/24/2022 2:56 PM CDT Plan of Treatment Health Maintenance Due Date Last Done Comments Depression Screening 1945 Fall Risk Assessment 1945 Hepatitis C Screening 1945 Osteoporosis Screening-Bone Density Scan 1945 DTaP/Tdap/Td Vaccine (1 - Tdap) 1956 Hepatitis B Screening 10/13/1963 Zoster Vaccine (1 of 2) 10/13/1995 Well Visit 65+ 2010 Pneumococcal vaccine 65+ (2 of 2 - PPSV23) 02/28/2022 02/28/2021 Covid-19 Vaccine (3 - season) 2024, 09/26/2020 Influenza Vaccine (#1) 2024 Insurance [facility] [employer] [address] Care Teams Air Conditioning Service Technician Relationship Specialty Start Date End Date Timoteo Lovell DO PCP - General Internal Medicine 01/17/21
== END 2024-10-07 08:28 | disposition home or self-care (01) ==
PROVIDERS: PCP Nurse Practitioner Family; Visit Provider Nurse Practitioner Family
DX: Z12.31 Encounter for screening mammogram for malignant neoplasm of breast (principal)
CPT/HCPCS: 77063; 77067

== ENCOUNTER 2024-12-03 12:53 | Outpatient (CLI) | payer OTHER, SELFPAY ==
--- NOTE | ~2024-12-03 | XR_ITS ---
Thoracic spine: Clinical Indication: Back pain AP and lateral views were performed. No fracture is seen. There is normal alignment of the vertebrae. Mild degenerative disc changes are present. Paravertebral soft tissues appear normal. Impression: Mild degenerative disc changes. Reviewed, dictated and finalized at location . Impression: Mild degenerative disc changes.
--- OUTSIDE RECORDS SUMMARY | 2024-12-03 13:13 | XMS_ITS | Encounter Summary ---
Author Organization [facility] Address [address] [facility] [place] [address] Care Team Providers Care Starch Mangle Tender Name Role Phone Timoteo Lovell DO Primary Care Provider [phone] Encounter Details Date Type Department Care Team (Late st Contact Info) Description 01/13/2020 Lab Requisition [facility] DermPath Lab [address] [facility], [facility] [place] [address] Neeta Pappas MD [address] 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 Gender Identity Not on file Sexual Orientation Not on file documented as of this encounter Plan of Treatment Not on file documented as of this encounter Procedures Procedure Name Priority Date/Time Associated Diagnosis Comments DERMATOPATHOLOGY Routine 01/12/2020 12:0 0 AM CDT documented in this encounter Results * DERMATOPATHOLOGY (01/12/2020 12:00 AM CDT) Case Report Dermatopathology Report Case: [id number] Authorizing Provider: Neeta Pappas MD Collected: 01/12/2020 12:00 AM Ordering Location: [facility] DermPath Lab Received: 01/13/2020 12:15 PM [...] characteristic determined by the Dermatopathology Laboratory at [facility], directed by Dr. Nilay Hutton. These tests need not be, and therefore are not, approved by the [place] Food and Drug Administration. The tests are used for clinical purposes. Billing Codes Specimen Charges Stain Charges 19857 1 0 12:58 PM CDT DERMATOPATHOLOGY LABORATORY Embedded Images 0 12:58 PM CDT DERMATOPATHOLOGY LABORATORY Pathology/Cytolog y TISSUE SPECIMEN FROM SKIN / Unknown 01/12/2020 01/13/2020 12:15 PM CDT us Neeta Pappas MD LAB - PATHOLOGY/CYTOLOGY OR DERABLES Final Result DERMATOPATHOLOGY LABORATORY [facility] - Department of Dermatology [facility]/[address] [address], [facility] [phone] documented in this encounter Visit Diagnoses Not on filedocumented in this encounter Care Teams Starch Mangle Tender Relationship Specialty Start Date End Date Timoteo Lovell DO [address] [place] [address] PCP - General 01/13/20 documented as of this encounter
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
--- OUTSIDE RECORDS SUMMARY | 2024-12-03 13:13 | XMS_ITS | Encounter Summary ---
Author Organization [facility] Address [address] [facility] [place] [address] Care Team Providers Care Virginia Line Attendant Name Role Phone Timoteo Lovell DO Primary Care Provider [phone] Encounter Details Date Type Department Care Team (Late st Contact Info) Description 02/20/2020 Lab Requisition [facility] DermPath Lab [address] [facility], [facility] [place] [address] Neeta Pappas MD [address] [facility] 3 [place] [address] Social History Tobacco Use Types Packs/Day Years Used Date Smoking Tobacco: Never Assessed Comments Unknown Sex and Gender Information Value Date Recorded Sex Assigned at Not on file 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 Gender Identity Not on file Sexual Orientation Not on file documented as of this encounter Plan of Treatment Not on file documented as of this encounter Procedures Procedure Name Priority Date/Time Associated Diagnosis Comments DERMATOPATHOLOGY Routine 02/19/2020 12:0 0 AM CDT documented in this encounter Results * DERMATOPATHOLOGY (02/19/2020 12:00 AM CDT) Case Report Dermatopathology Report Case: [id number] Authorizing Provider: Neeta Pappas MD Collected: 02/19/2020 12:00 AM Ordering Location: [facility] DermPath Lab Received: 02/20/2020 09:15 AM Pathologist: Tara Toledo MD Specimen: Skin, right upper back 0 1:48 PM CDT DERMATOPATHOLOGY LABORATORY Final Diagnosis Specimen A. SKIN, right upper back: BASAL CELL CARCINOMA (C44.519) APPROXIMATES MARGIN DERMAL SCAR (L90.5) 0 1:48 PM CDT DERMATOPATHOLOGY LABORATORY Clinical History BCC, superficial multifocal, bx proven. Previous Bx: [id number]. 0 1:48 PM CDT DERMATOPATHOLOGY LABORATORY Gross Description Specimen A: Received is one formalin filled container labeled with the patient's name and designated right upper back. The specimen consists of a non-oriented ellipse of skin measuring 31e36m2ss. The epidermal surface consists of a centrally [...] characteristic determined by the Dermatopathology Laboratory at [facility], directed by Dr. Nilay Hutton. These tests need not be, and therefore are not, approved by the [place] Food and Drug Administration. The tests are used for clinical purposes. Billing Codes Specimen Charges Stain Charges 60696 1 0 1:48 PM CDT DERMATOPATHOLOGY LABORATORY Embedded Images 0 1:48 PM CDT DERMATOPATHOLOGY LABORATORY Pathology/Cytolog y TISSUE SPECIMEN FROM SKIN / Unknown 02/19/2020 02/20/2020 9:15 AM CDT us Neeta Pappas MD LAB - PATHOLOGY/CYTOLOGY OR DERABLES Final Result DERMATOPATHOLOGY LABORATORY [facility] - Department of Dermatology [facility] [place] [address], [facility] [phone] documented in this encounter Visit Diagnoses Not on filedocumented in this encounter Care Teams Virginia Line Attendant Relationship Specialty Start Date End Date Timoteo Lovell DO [address] [place] [address] PCP - General 01/13/20 documented as of this encounter
--- OUTSIDE RECORDS SUMMARY | 2024-12-03 13:13 | XMS_ITS | Encounter Summary ---
Author Organization [facility] Address [address] [place] [address] Care Team Providers Care Director Visual Name Role Phone Timoteo Lovell DO Primary Care Provider [phone] Encounter Details Date Type Department Care Team (Late st Contact Info) Description 04/21/2020 Lab Requisition [facility] DermPath Lab [address] [facility], [facility] [place] [address] Neeta Pappas MD [address] [facility] 3 [place] [address] Social History Tobacco Use Types Packs/Day Years Used Date Smoking Tobacco: Never Assessed Comments Unknown Sex and Gender Information Value Date Recorded Sex Assigned at Not on file 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 Gender Identity Not on file Sexual Orientation Not on file documented as of this encounter Plan of Treatment Not on file documented as of this encounter Procedures Procedure Name Priority Date/Time Associated Diagnosis Comments DERMATOPATHOLOGY Routine 04/20/2020 12:0 0 AM CDT documented in this encounter Results * DERMATOPATHOLOGY (04/20/2020 12:00 AM CDT) Case Report Dermatopathology Report Case: [id number] Authorizing Provider: Neeta Pappas MD Collected: 04/20/2020 12:00 AM Ordering Location: [facility] DermPath Lab Received: 04/21/2020 01:44 PM Pathologist: Humaira Platt MD Specimens: A) - Skin, right shoulder B) - Skin, right breast 0 3:24 PM CDT DERMATOPATHOLOGY LABORATORY Final Diagnosis Specimen A. SKIN, right shoulder: ACTINIC KERATOSIS (L57.0) SOLAR LENTIGO (L81.4) Specimen B. SKIN, right breast: DERMATOFIBROMA (D23.9) 0 3:24 PM T DERMATOPATHOLOGY LABORATORY Clinical History A: R/O nevus, irregular color. B: R/O BCC, non-healing. 0 3:24 PM CDT DERMATOPATHOLOGY LABORATORY Gross Description Specimen A: Received is one formalin filled container labeled with the patient's name and designated right shoulder. The specimen consists of a shave biopsy measuring [id number]. Jar 0. Specimen B: Received is one formalin filled container labeled with the patient's name and designated right breast. The specimen consists of a shave biopsy measuring 1q3f7rc. Jar 0. 0 3:24 PM [facility] DERMATOPATHOLOGY LABORATORY Microscopic Description Specimen A. SKIN, [...] among coarse collagen bundles. 0 3:24 PM T DERMATOPATHOLOGY LABORATORY Disclaimer An external and internal positive and negative controls are appropriate for the histochemical, immunohistochemical and immunofluorescence stain(s) in this case (if any), except where stated explicitly. The performance characteristics of the stain(s) cited in this report were developed and its performance characteristic determined by the Dermatopathology Laboratory at [facility], directed by Dr. Nilay Hutton. These tests need not be, and therefore are not, approved by the [place] Food and Drug Administration. The tests are used for clinical purposes. Billing Codes Specimen Charges Stain Charges 66881 13917 1 1 0 3:24 PM CDT DERMATOPATHOLOGY LABORATORY Embedded Images 09/24/202 0 3:24 PM CDT DERMATOPATHOLOGY LABORATORY Pathology/Cytology TISSUE SPECIMEN FROM SKIN / Unknown 04/20/2020 04/21/2020 1:44 PM CDT Miscellaneous samples (specimen) TISSUE SPECIMEN FROM SKIN / Unknown 04/20/2020 04/21/2020 1:44 PM CDT Neeta Pappas MD LAB - PATHOLOGY/CYTOLOGY OR DERABLES Final Result DERMATOPATHOLOGY LABORATORY [facility] - Department of Dermatology [facility] Specialized Medicine [address] [place] [address], [address] [phone] documented in this encounter Visit Diagnoses Not on filedocumented in this encounter Care Teams Director Visual Relationship Specialty Start Date End Date Timoteo Lovell DO [address] [place] [address] PCP - General 01/13/20 documented as of this encounter
--- OUTSIDE RECORDS SUMMARY | 2024-12-03 13:13 | XMS_ITS | Continuity of Care Document ---
Author Organization [facility] Address [address] [place] [address] Phone Care Team Providers Care Hatchery Attendant Name Role Phone Rafal Ward MD Unavailable [...] Copied on Encounter OFFICE/OUTPA TIENT VISIT, EST [facility], [address] [place], [address], [place] tel:[phone] [facility] Medicine lump on back (chief complaint)breas t spot (chief complaint) LipomaNon-neop lastic nevus [address]. [address], [address] , [place]. tel:[phone] Referring Provider: Rafal Ward, [address] [place], [place], [address]. tel:[phone] OFFICE/OUTPA TIENT VISIT, [facility], [address], [place], [place], [address], [place] tel:[phone] [facility] hypothyroidism (chief complaint)conta ct (chief complaint)EPILEPSY PHYSICIAN (chief complaint) Hypothyroidism Disorder of bone and cartilage, unspecifiedUns pecified visual disturbance Sep-0 9201 [address], [place], [place], [address] , [place]. [phone] Referring Provider: Xiomara Almonte [address], [place], [place], [address]. tel:[phone] OFFICE/OUTPA TIENT VISIT, [facility], [address], [place], [place], [address], [place] tel:[phone] [facility] Hypothyroidsm (chief complaint)eye exam (chief complaint)red spot (chief complaint) Dietary surveillance and counselingHypo thyroidismNevu s, non-neoplastic Abnormal weight gain 4 [address]. [address], [place], [place], [address] , [place]. tel:[phone] Referring Provider: Xiomara Almonte [address], [place], [place], [address]. tel:[phone] OFFICE/OUTPA TIENT VISIT, [facility], [address], [place], [place], [address], [place] tel:[phone] [facility] finger laceration (chief complaint) Dietary surveillance and counselingAbra pattie, unspecified [address]yles. [address], [place], [place], [address] , [place]. tel:[phone] Referring Provider: Xiomara Almonte [address], [place], [place], [address]. tel:[phone] OFFICE/OUTPA TIENT VISIT, [facility], [address], [place], [place], [address], [place] tel:[phone] [facility] PInk eye (chief complaint)weigh t gain (chief complaint)mole (chief complaint) Dietary surveillance and counselingNevu s, non-neoplastic Acute conjunctivitis , unspecifiedAbn ormal weight gain 3 [address]yles. [address], [place], [place], [address] , [place]. tel:[phone] Referring Provider: Rafal Ward, [address] [place] [address] A, [place], [place], [address]. tel:[phone] [facility], [address], [place], [place], [address], [place] tel:[phone] [facility] Benign neoplasm of other specified sites of skin 2 Ed Lyles. [address] [facility] A, [place], [place], [address] , [place]. tel:[phone] Referring Provider: Rafal Ward [address] [place] [address] A, [place], [place], [address]. tel:[phone] OFFICE/OUTPA TIENT VISIT, [facility], [address], [place], [place], [address], [place] tel:[phone] [facility] mole (chief complaint)hypot hyroidism (chief complaint) Dietary surveillance and counselingNevu s, non-neoplastic Hypothyroidism 2 [address]. [address], [facility] A, [place], [place], [address] , [place]. tel:[phone] Referring Provider: Rafal Ward [address] [place] [address] A, [place], [place], [address]. tel:[phone] Family History Family Member Type Diagnosis Age At Onset Father Problem (finding) Cancer - lung CA Sister Problem (finding) chronic pain Mother Problem (finding) Coronary artery disease Payers Payer name Insurance type Covered democrat ID Authoriza tion(s) No Information Social History [...] Of Treatment Date Type Action Status Goal Diabetes Screening. Due on due Goal EPILEPSY PHYSICIAN exam. Due on due Goal DEXA Scan. Due on 5 due Goal Breast exam. Due on 015 due Goal Pneumococcal vaccine. Due on due Goal Influenza vaccine. Due on due Goal H&P. Due on due Goal Cognitive assessment. Due on due Goal Depression screening. Due on due Goal Td vaccine. Due on 15 due Goal Zoster vaccine. Due on due Referral Ordered: Plastic Surgery (related to Lipoma) ordered Referral Ordered: Referrals: Plastic Surgery ordered Referral Ordered: Ophthalmology ordered Referral Ordered: OBGYN ordered Referral Ordered: MAMMOGRAM, SCREENING ordered Referral [...] Mental Status Date Cognitive Assessment Orientation - [place] ed to time, place, person, situation.
--- OUTSIDE RECORDS SUMMARY | 2024-12-03 13:13 | XMS_ITS | Clinical Summary ---
[facility] Organization [facility] Address [address] [place] [address] Care Team Providers Care Fur Comber Name Role Phone Timoteo Lovell DO Primary Care Provider [phone] Allergies No known active allergies Medications levothyroxine (SYNTHROID) 75 mcg tablet TAKE 1 TABLET BY MOUTH EVERY DAY SUNDAY THROUGH Sunday02/25/2021 Active Active Problems Problem Noted Date Diagnosed Date Bilateral hearing loss 04/11/2021 Assessment & Plan (04/24/2022 5:56 PM CDT): Avoid ear cleaning techniques Follow up as needed Continue hearing aids Assessment & Plan (04/11/2021 10:41 AM CDT): Hearing test - [facility] Surgical History Surgery Date Site/Laterality Comments THYROID SURGERY Social History Tobacco Use Types Packs/Day Years Used Date Smoking Tobacco: Never Smokeless Tobacco: Never Personal Safety Answer Date Recorded Getting School Help Needed Not on file 09/22 Comments Unknown Sex and Gender Information Value Date Recorded Sex Assigned at Not on file 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
--- OUTSIDE RECORDS SUMMARY | 2024-12-03 13:13 | XMS_ITS | Clinical Summary ---
Author Organization [facility] Address [address] [place] [address] Care Team Providers Care Nuclear Monitoring Technician Name Role Phone Anthony Lovelldie Zoe PETTIT Primary Care Provider [phone] Source Comments [facility],non-owned Affiliates and Associated Physician Practices is amultiple site organization consisting of ambulatory clinics and hospital sitesin [place], [place], [place] and [place]. This disclosure is being madepursuant to the Care Everywhere program and may not contain all information available regarding this patient. 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 Gender Identity Not on file Sexual Orientation Not on file Plan of Treatment Health Maintenance Due Date Last Done Comments BONE DENSITY TESTING 1945 DTAP/TDAP/TD VACCINES (1 - Tdap) 1964 PNEUMOCOCCAL VACCINE 50+ (1 of 1 - PCV) 10/13/1995 ZOSTER VACCINE (1 of 2) 10/13/1995 Respiratory Syncytial Virus (RSV) Vaccine Pt: or over 60 yrs (1 - 1-dose 75+ series) 2020 COVID-19 VACCINE ( - 2023-2 5 season) 2024 DEPRESSION SCREENING 07/30/2024 INFLUENZA VACCINE (Season Ended) 2025 HEPATITIS B VACCINE Aged Out No longe r eligible based on patient's age to complete this topic HIB VACCINE Aged Out No longer eligi ble based on patient's age to complete this topic HPV VACCINE Aged Out No longer eligi ble based on patient's age to complete this topic MENINGOCOCCAL (Group B) VACC INE SHARED DECISION-MAKING Aged Out No longer eligibl e based on patient's age to complete this topic MENINGOCOCCAL GROUPS A/C/Y/W VACCINE Aged Out No longer eligible b ased on patient's age to complete this topic Insurance [facility] MEDICARE Care Teams Nuclear Monitoring Technician Relationship Specialty Start Date End Date Timoteo Lovell DO [address] [place] [address] PCP - General 01/13/20
--- OUTSIDE RECORDS SUMMARY | 2024-12-03 13:13 | XMS_ITS | Referral Summary ---
Author Organization [facility] Medical Office Building B Address [address] [place] [address] Care Team Providers Care Literary Agent Name Role Phone Timoteo Lovell DO Primary Care Provider [phone] Allergies No known active allergies Medications levothyroxine (SYNTHROID) 75 mcg tablet TAKE 1 TABLET BY MOUTH EVERY DAY SUNDAY THROUGH Sunday02/25/2021 Active Active Problems Problem Noted Date Diagnosed Date Bilateral hearing loss 04/11/2021 Assessment & Plan (04/24/2022 5:56 PM CDT): Avoid ear cleaning techniques Follow up as needed Continue hearing aids Assessment & Plan (04/11/2021 10:41 AM CDT): Hearing test - [facility] Social History Tobacco Use Types Packs/Day Years Used Date Smoking Tobacco: Never Smokeless Tobacco: Never Personal Safety Answer Date Recorded Getting School Help Needed Not on file 09/22 Comments Unknown Sex and Gender Information Value Date Recorded Sex Assigned at Not on file 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
== END 2024-12-03 12:54 | disposition home or self-care (01) ==
PROVIDERS: PCP Nurse Practitioner Family; Visit Provider Nurse Practitioner Family
DX: M51.34 Other intervertebral disc degeneration, thoracic region (principal)
CPT/HCPCS: 72072

== ENCOUNTER 2024-12-03 13:07 | Outpatient (CLI) | payer OTHER, SELFPAY ==
--- NOTE | 2024-12-03 | ECG_ITS ---
Test Date: 2024-12-03 14:14:03 Measurements Intervals [place] Rate: 76 P: 53 SD: 214 QRS: 54 QRSD: 102 T: 68 QT: 383 QTc: 431 Interpretive Statements SINUS RHYTHM WITH FIRST DEGREE AV BLOCK Compared to ECG 07/17/2024 11:13:44 First degree AV block now present Electronically Signed On 12-03-2024 14:30:49 CDT by Jami Manning M.D.
--- OUTSIDE RECORDS SUMMARY | 2024-12-03 13:34 | XMS_ITS | Encounter Summary ---
Author Organization [facility] Address [address] [place] [address] Care Team Providers Care Executor Of Estate Name Role Phone Timoteo Lovell DO Primary Care Provider [phone] Encounter Details Date Type Department Care Team (Late st Contact Info) Description 01/13/2020 Lab Requisition [facility] DermPath Lab [address] [facility] [place] [address] Neeta Pappas MD [address] [facility] 3 [place] [address] Social History Tobacco Use Types Packs/Day Years Used Date Smoking Tobacco: Never Assessed Comments Unknown Sex and Gender Information Value Date Recorded Sex Assigned at Not on file 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 Gender Identity Not on file Sexual Orientation Not on file documented as of this encounter Plan of Treatment Not on file documented as of this encounter Procedures Procedure Name Priority Date/Time Associated Diagnosis Comments DERMATOPATHOLOGY Routine 01/12/2020 12:0 0 AM CDT documented in this encounter Results * DERMATOPATHOLOGY (01/12/2020 12:00 AM CDT) Case Report Dermatopathology Report Case: [id number] Authorizing Provider: Neeta Pappas MD Collected: 01/12/2020 12:00 AM Ordering Location: [facility] DermPath Lab Received: 01/13/2020 12:15 PM Pathologist: [...] characteristic determined by the Dermatopathology Laboratory at [facility], directed by Dr. Nilay Hutton. These tests need not be, and therefore are not, approved by the [place] Food and Drug Administration. The tests are used for clinical purposes. Billing Codes Specimen Charges Stain Charges 64989 1 0 12:58 PM CDT DERMATOPATHOLOGY LABORATORY Embedded Images 0 12:58 PM CDT DERMATOPATHOLOGY LABORATORY Pathology/Cytolog y TISSUE SPECIMEN FROM SKIN / Unknown 01/12/2020 01/13/2020 12:15 PM CDT us Neeta Pappas MD LAB - PATHOLOGY/CYTOLOGY OR DERABLES Final Result DERMATOPATHOLOGY LABORATORY [facility] - Department of Dermatology [facility]/[address] [address], [facility] [phone] documented in this encounter Visit Diagnoses Not on filedocumented in this encounter Care Teams Executor Of Estate Relationship Specialty Start Date End Date Timoteo Lovell DO [address] [place] [address] PCP - General 01/13/20 documented as of this encounter
--- OUTSIDE RECORDS SUMMARY | 2024-12-03 13:34 | XMS_ITS | Clinical Summary ---
Author Organization [facility] Address [address] [place] [address] Care Team Providers Care Fleet Assistant Name Role Phone Timoteo Lovell DO Primary Care Provider [phone] Allergies No known active allergies Medications levothyroxine (SYNTHROID) 75 mcg tablet TAKE 1 TABLET BY MOUTH EVERY DAY SUNDAY THROUGH Sunday02/25/2021 Active Active Problems Problem Noted Date Diagnosed Date Bilateral hearing loss 04/11/2021 Assessment & Plan (04/24/2022 5:56 PM CDT): Avoid ear cleaning techniques Follow up as needed Continue hearing aids Assessment & Plan (04/11/2021 10:41 AM CDT): Hearing test - [facility] Surgical History Surgery Date Site/Laterality Comments THYROID SURGERY Social History Tobacco Use Types Packs/Day Years Used Date Smoking Tobacco: Never Smokeless Tobacco: Never Personal Safety Answer Date Recorded Getting School Help Needed Not on file 09/22 Comments Unknown Sex and Gender Information Value Date Recorded Sex Assigned at Not on file 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
--- OUTSIDE RECORDS SUMMARY | 2024-12-03 13:34 | XMS_ITS | Referral Summary ---
Author Organization [facility] Address [address] [place] [address] Care Team Providers Care Electrical Checkout Mechanic Name Role Phone Timoteo Lovell DO Primary Care Provider [phone] Allergies No known active allergies Medications levothyroxine (SYNTHROID) 75 mcg tablet TAKE 1 TABLET BY MOUTH EVERY DAY SUNDAY THROUGH Sunday02/25/2021 Active Active Problems Problem Noted Date Diagnosed Date Bilateral hearing loss 04/11/2021 Assessment & Plan (04/24/2022 5:56 PM CDT): Avoid ear cleaning techniques Follow up as needed Continue hearing aids Assessment & Plan (04/11/2021 10:41 AM CDT): Hearing test - [facility] Social History Tobacco Use Types Packs/Day Years Used Date Smoking Tobacco: Never Smokeless Tobacco: Never Personal Safety Answer Date Recorded Getting School Help Needed Not on file 09/22 Comments Unknown Sex and Gender Information Value Date Recorded Sex Assigned at Not on file 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
--- OUTSIDE RECORDS SUMMARY | 2024-12-03 13:34 | XMS_ITS | Encounter Summary ---
Author Organization [facility] Address [address] [facility] [place] [address] Care Team Providers Care Liquor Tester Name Role Phone Timoteo Lovell DO Primary Care Provider [phone] Encounter Details Date Type Department Care Team (Late st Contact Info) Description 04/21/2020 Lab Requisition [facility] DermPath Lab [address] [facility] [facility] [place] [address] Neeta Pappas MD [address] [facility] 3 [place] [address] Social History Tobacco Use Types Packs/Day Years Used Date Smoking Tobacco: Never Assessed Comments Unknown Sex and Gender Information Value Date Recorded Sex Assigned at Not on file 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 Gender Identity Not on file Sexual Orientation Not on file documented as of this encounter Plan of Treatment Not on file documented as of this encounter Procedures Procedure Name Priority Date/Time Associated Diagnosis Comments DERMATOPATHOLOGY Routine 04/20/2020 12:0 0 AM CDT documented in this encounter Results * DERMATOPATHOLOGY (04/20/2020 12:00 AM CDT) Case Report Dermatopathology Report Case: [id number] Authorizing Provider: Neeta Pappas MD Collected: 04/20/2020 12:00 AM Ordering Location: [facility] DermPath Lab Received: 04/21/2020 01:44 PM Pathologist: [...] specimen consists of a shave biopsy measuring [id number]. Jar 0. Specimen B: Received is one formalin filled container labeled with the patient's name and designated right breast. The specimen consists of a shave biopsy measuring [id number]. Jar 0. 0 3:24 PM [facility] DERMATOPATHOLOGY LABORATORY Microscopic Description Specimen A. SKIN, [...] characteristic determined by the Dermatopathology Laboratory at [facility], directed by Dr. Nilay Hutton. These tests need not be, and therefore are not, approved by the [place] Food and Drug Administration. The tests are used for clinical purposes. Billing Codes Specimen Charges Stain Charges 96024 46131 1 1 0 3:24 PM CDT DERMATOPATHOLOGY LABORATORY Embedded Images 09/24/202 0 3:24 PM CDT DERMATOPATHOLOGY LABORATORY Pathology/Cytology TISSUE SPECIMEN FROM SKIN / Unknown 04/20/2020 04/21/2020 1:44 PM CDT Miscellaneous samples (specimen) TISSUE SPECIMEN FROM SKIN / Unknown 04/20/2020 04/21/2020 1:44 PM CDT Neeta Pappas MD LAB - PATHOLOGY/CYTOLOGY OR DERABLES Final Result DERMATOPATHOLOGY LABORATORY [facility] - Department of Dermatology [facility] Specialized Medicine [address] [place] [address], [address] [phone] documented in this encounter Visit Diagnoses Not on filedocumented in this encounter Care Teams Liquor Tester Relationship Specialty Start Date End Date Timoteo Lovell DO [address] [place] [address] PCP - General 01/13/20 documented as of this encounter
--- OUTSIDE RECORDS SUMMARY | 2024-12-03 13:34 | XMS_ITS | Clinical Summary ---
Author Organization [facility] Address [address] [place] [address] Care Team Providers Care Map And Chart Mounter Name Role Phone Anthony Lovelldie Zoe PETTIT Primary Care Provider [phone] Source Comments [facility],non-owned Affiliates and Associated Physician Practices is amultiple site organization consisting of ambulatory clinics and hospital sitesin [place], [place], [place] and [place]. This disclosure is being madepursuant to the Care Everywhere program and may not contain all information available regarding this patient. 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
--- OUTSIDE RECORDS SUMMARY | 2024-12-03 13:34 | XMS_ITS | Continuity of Care Document ---
Author Organization [facility] Address [address] [place] [address] [place] [address] Phone Care Team Providers Care Branch Services Manager Name Role Phone Rafal Ward MD Unavailable Unavailable Allergies, Adverse Reactions, Alerts Substance Reaction Status Criticality No Known Allergies Active No Inform ation Medications Medication Instructions Dosage Effective Dates (start - stop) Status Comments Synthroid 50 mcg tablet take 1 tablet (50MCG) by oral route every other day - Active Synthroid 75 mcg tablet take 1 tablet [...] Copied on Encounter OFFICE/OUTPA TIENT VISIT, EST [facility], [address] [place], [id number], [place] tel:[phone] [facility] Medicine lump on back (chief complaint)breas t spot (chief complaint) LipomaNon-neop lastic nevus [address]. [address], [place], [address] , [place]. tel:[phone] Referring Provider: Rafal Ward, [address] [place], [place], [address]. 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, [place], [place], [address] , [place]. [phone] Referring Provider: Xiomara Almonte [address], [place], [place], [address]. tel:[phone] OFFICE/OUTPA TIENT VISIT, [facility], [address], [place], [place], [address], [place] tel:[phone] [facility] Hypothyroidsm (chief complaint)eye exam (chief complaint)red spot (chief complaint) Dietary surveillance and counselingHypo thyroidismNevu s, non-neoplastic Abnormal weight gain [address], [place], [place], [address] , [place]. tel:[phone] Referring Provider: Xiomara Almonte [address], [place], [place], [address]. tel:[phone] OFFICE/OUTPA TIENT VISIT, [facility], [address], [place], [place], [address], [place] tel:[phone] [facility] finger laceration (chief complaint) Dietary surveillance and counselingAbra pattie, unspecified [address], [place], [place], [address] , [place]. tel:[phone] Referring Provider: Xiomara Almonte [address], [place], [place], [address]. tel:[phone] OFFICE/OUTPA TIENT VISIT, [facility], [address], [place], [place], [address], [place] tel:[phone] [facility] PInk eye (chief complaint)weigh t gain (chief complaint)mole (chief complaint) Dietary surveillance and counselingNevu s, non-neoplastic Acute conjunctivitis , unspecifiedAbn ormal weight gain 3 [address], [place], [place], [address] , [place]. tel:[phone] Referring Provider: Rafal Ward, [address] [place] [address] A, [place], [place], [address]. tel:[phone] [facility], [address], [place], [place], [address], [place] tel:[phone] [facility] Benign neoplasm of other specified sites of skin 2 [address] Lyles. [address] [facility] [address], [place], [place], [address] , [place]. tel:[phone] Referring Provider: Rafal Ward [address] [place] [address] A, [place], [place], [id number]. tel:[phone] OFFICE/OUTPA TIENT VISIT, [facility], [address], [place], [place], [address], [place] tel:[phone] [facility] mole (chief complaint)hypot hyroidism (chief complaint) Dietary surveillance and counselingNevu s, non-neoplastic Hypothyroidism 2 [address]. [address] [facility] A, [place], [place], [address] , [place]. tel:[phone] Referring Provider: Rafal Ward [address] [place] [address] A, [place], [place], [address]. tel:[phone] Family History Family Member Type Diagnosis Age At Onset Father Problem (finding) Cancer - lung CA Sister Problem (finding) chronic pain Mother Problem (finding) Coronary artery disease Payers Payer name Insurance type Covered alliance party ID Authoriza tion(s) No Information Social History [...] Goal Diabetes Screening. Due on due Goal BARREL POLISHER INSIDE exam. Due on due Goal DEXA Scan. [...] Date Complaint History Of Prese nt Illness lump on back Pt notices a lar ge nontender lump on her back for several weeks. Pt denies any pain or any injury breast spot Pt notices a ? m ole on right breast for one month. Pt denies any change in appearance. Pt denies any bleeding Instructions Date Instruction Additional Infor ramsey Dietary [...] Mental Status Date Cognitive Assessment Orientation - Doyline ed to time, place, person, situation.
--- OUTSIDE RECORDS SUMMARY | 2024-12-03 13:34 | XMS_ITS | Encounter Summary ---
Author Organization [facility] Address [address] [facility] [place] [address] Care Team Providers Care Hydroelectric Machinery Mechanic Name Role Phone Timoteo Lovell DO Primary Care Provider [phone] Encounter Details Date Type Department Care Team (Late st Contact Info) Description 02/20/2020 Lab Requisition [facility] DermPath Lab [address] 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 Gender Identity Not on file Sexual Orientation Not on file documented as of this encounter Plan of Treatment Not on file documented as of this encounter Procedures Procedure Name Priority Date/Time Associated Diagnosis Comments DERMATOPATHOLOGY Routine 02/19/2020 12:0 0 AM CDT documented in this encounter Results * DERMATOPATHOLOGY (02/19/2020 12:00 AM CDT) Case Report Dermatopathology Report Case: [id number] Authorizing Provider: Neeta Pappas MD Collected: 02/19/2020 12:00 AM Ordering Location: [facility] DermPath Lab Received: 02/20/2020 09:15 AM Pathologist: Tara Toledo MD Specimen: Skin, right upper back 0 1:48 PM CDT DERMATOPATHOLOGY LABORATORY Final Diagnosis Specimen A. SKIN, right upper back: BASAL CELL CARCINOMA (C44.519) APPROXIMATES MARGIN DERMAL SCAR (L90.5) 0 1:48 PM CDT DERMATOPATHOLOGY LABORATORY Clinical History BCC, superficial multifocal, bx proven. Previous Bx: [id number]. 0 1:48 PM CDT DERMATOPATHOLOGY LABORATORY Gross Description Specimen A: Received is one formalin filled container labeled with the patient's name and designated right upper back. The specimen consists of a non-oriented ellipse of skin measuring [id number]. The epidermal surface consists of a centrally [...] characteristic determined by the Dermatopathology Laboratory at [facility], directed by Dr. Nilay Hutton. These tests need not be, and therefore are not, approved by the [place] Food and Drug Administration. The tests are used for clinical purposes. Billing Codes Specimen Charges Stain Charges 29083 1 0 1:48 PM CDT DERMATOPATHOLOGY LABORATORY Embedded Images 0 1:48 PM CDT DERMATOPATHOLOGY LABORATORY Pathology/Cytolog y TISSUE SPECIMEN FROM SKIN / Unknown 02/19/2020 02/20/2020 9:15 AM CDT us Neeta Pappas MD LAB - PATHOLOGY/CYTOLOGY OR DERABLES Final Result DERMATOPATHOLOGY LABORATORY [facility] - Department of Dermatology [facility] [place] [address], [facility] [phone] documented in this encounter Visit Diagnoses Not on filedocumented in this encounter Care Teams Hydroelectric Machinery Mechanic Relationship Specialty Start Date End Date Timoteo Lovell DO [address] [place] [address] PCP - General 01/13/20 documented as of this encounter
[2024-12-03 15:18] LABS: Anion Gap 7 mmol/L (4-12); Blood Urea Nitrogen 21 mg/dL (7-17); Calcium 9.5 mg/dL (8.4-10.2); Carbon Dioxide 30 mmol/L (22-30); Chloride 101 mmol/L (98-107); Estimated Glomerular Filt Rate > 60; Glucose 94 mg/dL (65-110); Potassium 3.8 mmol/L (3.4-5.0); Sodium 138 mmol/L (137-145)
== END 2024-12-03 13:08 | disposition home or self-care (01) ==
LOC: ANHCARD 13:23
PROVIDERS: PCP Nurse Practitioner Family; Visit Provider Surgery Plastic and Reconstructive Surgery
DX: I44.0 Atrioventricular block, first degree (principal); I10 Essential (primary) hypertension
CPT/HCPCS: 36415; 80048; 93005